=== PATIENT | female | born 1950 | race Caucasian/White ===

== ENCOUNTER → 2018-01-29 07:14 | Outpatient (CLI) | payer MEDICARE, SELFPAY ==
--- NOTE | 2018-01-29 11:16 | NEURO_ITS ---
NCS and/or EMG Patient Report Ordering Doctor: Gretta Lynne DATE OF SERVICE: 01/29/18 This is a bilateral upper extremity nerve conduction study and a right upper extremity EMG performed on this 67-year-old female who began to experience burning and itching sensations in both arms approximately 1 year ago, after having started chemotherapy for breast cancer. Chemotherapy at the time included Taxotere carboplatin Herceptin and perjeta. She is now on Arimidex. Lateral upper extremity sensory and motor nerve conduction studies are performed. The median motor and sensory distal latencies are mild to moderately prolonged symmetrically with preservation of amplitudes and conduction velocities. The ulnar motor and sensory and radial sensory responses are normal. The median and ulnar F-wave latencies are symmetrically preserved. Right upper extremity needle electromyography is performed. Muscles evaluated i ncluded the first dorsal interosseous, abductor pollicis brevis, brachioradialis, biceps, triceps, deltoid, and abductor pollicis longus. All muscles demonstrated normal insertional activity with absence of pathologic spontaneous activity. Motor unit potential recruitment pattern and amplitude was normal in all muscles tested. Impression: This is an abnormal elective his like study of the bilateral upper extremities consistent with mild carpal tunnel syndrome bilaterally however this is likely not a clinically significant finding. 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
== END ==
PROVIDERS: Family Provider Family Medicine; PCP Family Medicine; Referring Provider Family Medicine; Visit Provider Family Medicine
DX: R20.2 Paresthesia of skin (principal)
CPT/HCPCS: 95886; 95911

== ENCOUNTER → 2019-12-29 13:21 | Outpatient (CLI) | payer MEDICARE, SELFPAY ==
[2019-12-29 13:45] LABS: CREATININE FINGERSTICK < 0.6 mg/dL (0.55-1.02)
--- NOTE | 2019-12-29 13:45 | CT_ITS ---
STUDY: CT ABDOMEN AND PELVIS WITH AND WITHOUT CONTRAST REASON FOR EXAM: Female, 69 years old. RIGHT SIDED MIDBACK PAIN LOWER PELVIS HEAVINESS. HX OF UTI BREAST CA WITH A MASTECTOMY RADIATION AND CHEMO RADIATION DOSAGE (If Supplied By Facility): CTDIvol = ( 21.16 ) mGy, DLP = ( 2587.22 ) mGycm TECHNIQUE: Transaxial images were obtained from the dome of the diaphragm to the symphysis pubis with oral contrast. Oral and IV Readi-CAT and 100mL Isovue-370 was administered. Sagittal and coronal images were reconstructed. Individualized dose optimization techniques were used for this CT. COMPARISON: None. FINDINGS: The visualized lung bases are unremarkable. The visualized portions of the heart are within normal limits. Normal liver. Normal gallbladder and extrahepatic biliary system. Normal spleen. Normal pancreas. Normal bilateral adrenal glands. Normal right kidney. Normal left kidney. Normal visualized stomach. Normal small intestine. Moderate amount of fecal material is seen in the colon. Scattered sigmoid diverticula. The appendix is visualized and appears normal. There is diffuse atherosclerotic calcification of the abdominal aorta, without a demonstrated aneurysm. Normal inferior vena cava. There is borderline retroperitoneal lymphadenopathy with enlarged nodes no greater than 10mm in the short axis diameter. Normal urinary bladder. There is a small umbilical hernia containing fat. Small bilateral inguinal hernias containing fat. There are diffuse degenerative changes of the visualized lumbar spine. CT/CT Abd/Pelvis W/WO Contrast IMPRESSION: Moderate amount of fecal material is seen throughout the colon. Small hiatal hernia. Scattered sigmoid diverticula. Electronically Signed: Bruno Tyson, at 15:44 EDT , Service support ,
== END ==
PROVIDERS: PCP Family Medicine; Referring Provider Urology; Visit Provider Urology
DX: R10.9 Unspecified abdominal pain (principal); R11.0 Nausea
CPT/HCPCS: 74178; Q9967

== ENCOUNTER 2020-01-26 03:43 | Observation (INO) | payer MEDICARE, SELFPAY ==
[2020-01-26] VITALS (12 sets, daily range): BP systolic 119–156; BP diastolic 65–79; PULSE 64–79; RESP 16–20; TEMP 36.8–37.5; O2SAT 90–99; BMI 34.9; BMI 34.2; BMI 34.3
--- NOTE | 2020-01-26 05:03 | EKG12_ITS ---
Test Reason : SOB Blood Pressure : / mmHG Vent. Rate : 069 BPM Atrial Rate : 069 BPM P-R Int : 136 ms QRS Dur : 092 ms QT Int : 398 ms P-R-T Axes : -25 038 009 degrees QTc Int : 426 ms Normal sinus rhythm Normal ECG Confirmed by TALHA IVEY, JUAN ([id number]), image editor GABRIEL RIVERA ([id number]) on 01/27/2020 10:35:42 AM Referred By: VIOLETA Confirmed By:JUAN PALENCIA MD
[2020-01-26] MEDS: Acetaminophen 500 MG Tablet 1000 MG PO (05:24)
[2020-01-26 05:26] LABS: Absolute Lymphocyte Count 0.67 X10^3/uL (0.83-4.51); Absolute Neutrophil Count 1.9 X10^3/uL (2.0-7.7); Basophil# 0.01 X10^3/uL; Basophil% 0.3 % (0-1); Eosinophil# 0.11 X10^3/uL; Eosinophils% 3.7 % (0-5); Hematocrit 38.7 % (37-47); Hemoglobin 12.8 g/dL (12.0-15.0); Lymphocyte # 0.67 X10^3/ul (4.0); Lymphocyte % 22.5 % (19-41); Mean Corp Hgb Conc 33.1 g/dL (32-36); Mean Corpuscular Hgb 30.3 pg (27.0-32.0); Mean Corpuscular Volume 91.7 fL (81-99); Monocyte# 0.23 X10^3/uL; Monocyte% 7.7 % (0-10); NRBC Flagged by Analyzer 0 % (0-5); Neutrophil # 1.94 X10^3/uL (2.7-7.7); Neutrophil % 65.1 % (47-70); Platelet Count 160 K/mm3 (150-450); RBC Distribution Width CV 13.3 % (11.6-14.6); RBC Distribution Width SD 45.1 fl (35.1-43.9); Red Blood Count 4.22 M/mm3 (4.2-5.4)
--- NOTE | 2020-01-26 05:35 | ED.VISSUMM ---
- ER Visit Summary Date of Service: 01/26/20 Chief Complaint: Shortness of breath History of Present Illness: The patient is a 69 F who presents with shortness of breath that is been getting worse since yesterday. Patient states she is a heavy feeling in her chest. Patient states nothing makes her breathing worse. Patient states albuterol seem to help with her breathing. Patient states she has a fever of 102. Patient admits to subjective chills. Patient admits to a cough. Patient also admits to some pain in her chest. Patient states she was recently tested positive for COVID-19. Physical Examination: Vital signs are stable. Patient is afebrile. Patient is in no acute distress. Oral mucosa is pink and moist. Neck is supple. Trachea is midline. There is no JVD. Heart was regular rate and rhythm. Lungs showed mild rhonchi. Abdomen is soft bowel sounds are normal. There is no tenderness. Cranial nerves II through XII are intact. There are no focal motor or sensory deficits noted. Extremities are intact. There is no calf tenderness or edema. Test Results: EKG shows normal sinus rhythm with a rate of 69. There are no acute ST or T wave changes. This was unchanged compared to previous EKG dated 02/06/2017. Chest x-ray was obtained. There is increased interstitial prominence in the mid and lower lung melgoza bilaterally. This was interpreted by the radiologist and reviewed by myself. CBC, comprehensive metabolic profile, urinalysis, and lactate were obtained were all within normal limits. PT with INR and PTT were normal. Emergency Department Course and Treatment: Blood cultures were obtained and are pending. Patient was given a DuoNeb aerosol here. Case was discussed with the hospitalist. He will admit the patient to the Covid unit. Patient and family understood and were agreeable with the plan. All questions were answered. Disposition: Admit to hospital Impression: 1. COVID-19 2. Hypoxia This note was generated with [employer] dictation software. It may contain incorrect words, spelling, and punctuation that were not noted in review of the chart prior to signing ED Disposition - Plan for ED Patient: Disposition: Acute Care Hospital [facility] Diagnosis: COVID-19, Hypoxia Referrals: Gretta Lynne PA-C [Primary Care Provider] -
[2020-01-26 05:42] LABS: ALB/GLOB Ratio 0.9 RATIO (0.9-2.4); AST(SGOT) 20 U/L (15-37); Alanine Aminotransfer ALT/SGPT 29 U/L (13-56); Albumin, Serum 3.5 g/dL (3.2-5.0); Alkaline Phosphatase 87 U/L (45-117); Anion Gap 8 (5-15); BUN 13 mg/dL (7-18); BUN/Creat Ratio 17.9 RATIO (10-20); Chloride 105 mmol/L (98-107); Creatinine, Serum 0.73 mg/dL (0.55-1.02); EST Glomerular Filtration Rate 85 mL/min (>60); Est Glom Filt Rate - Afr Amer 103 mL/min (>60); Estimated Creatinine Clearance 55.07 ml/min; Glucose 112 mg/dL (74-106); Potassium 3.7 mmol/L (3.5-5.1); Protein, Total 7.5 g/dL (6.4-8.2); Sodium Level 140 mmol/L (136-145)
[2020-01-26 05:44] LABS: Lactic Acid 1.4 mmol/L (0.4-1.9)
--- NOTE | 2020-01-26 05:45 | RAD_ITS ---
STUDY: X-RAY CHEST REASON FOR EXAM: Female, 69 years old. COUGH TECHNIQUE: Single AP portable view of the chest. COMPARISON: 04/03/2017. FINDINGS: There is interstitial prominence in the mid and lower lung melgoza bilaterally, which probably represents a combination of acute and chronic disease. Atypical infection is suspected. There is no demonstrated dense pulmonary consolidation.. There is no demonstrated pleural abnormality. Normal size heart. Normal mediastinum and arnel. There is atherosclerotic calcification of the aortic arch. There are no demonstrated acute fractures or destructive bone lesions. There is no demonstrated abnormality of the visualized soft tissue structures of the upper abdomen. RAD/Chest 1 View (Portable) IMPRESSION: Increased interstitial prominence in mid and lower lung melgoza, suspicious for atypical/viral infection or underlying chronic disease. No demonstrated dense pulmonary consolidation. Electronically Signed: Yunier Springer MD at 6:25 EDT , Service support ,
[2020-01-26 05:54] LABS: Bacteria 0 SEEN /hpf (None Seen); Mucous, Urine 0 SEEN /hpf (<or=2+); Squamous Epithelial Cells - UA 0 SEEN /hpf (5-10)
[2020-01-26 05:55] LABS: Color, Urine Yellow (Yellow); Glucose, Dipstick Normal (Normal); Ketone-Dipstick 5 mg/dl (Negative); Leukocyte Esterase-Dipstick 25 /ul (Negative); Nitrite-Dipstick Negative (Negative); Occult Blood-Urine 10 /ul (Negative); Protein-Dipstick 30 mg/dl (Negative); Urine Bilirubin Dipstick Negative (Negative); Urine Clarity Clear (Clear); Urine Urobilinogen Normal (Normal)
[2020-01-26 06:26] LABS: Red Blood Cells-Urine 0-5 SEEN /hpf (0-5); White Blood Cells 0-5 SEEN /hpf (0-5)
[2020-01-26 06:39] LABS: Prothrombin Time (Protime)PT. 12.2 SECONDS (11.7-14.9)
[2020-01-26 06:40] LABS: Partial Thromboplast Time 31.1 Seconds (24.1-36.2)
--- NOTE | 2020-01-26 07:20 | NURSING ---
DR TREJO FOR DR MCDANIEL
--- NOTE | 2020-01-26 07:23 | NURSING ---
MS2 COVID COVID 19, HYPOXIA KOTSONIA
[2020-01-26] MEDS: Ipratropium/Albuterol Sulfate 3 ML AMPUL.NEB INHALATION (07:30)
--- NOTE | 2020-01-26 07:33 | NURSING ---
DR TREJO IN ER
--- NOTE | 2020-01-26 09:30 | PCM.HP.STD ---
History of Present Illness Date of Admission: 01/26/20 Chief Complaint: Worsening shortness of breath and cough The patient is a 69 year old F with PMH as below who presents to the hospital with worsening shortness of breath and cough. She also developed a slight fever last night to over 101. She states that her daughter had Covid and then she started feeling bad on Sunday and got tested and the test came back positive for Covid and she has been slowly declining over the last week culminating in coming to the hospital today. In the ER she was found to have a white blood cell count of 3, she is on immunotherapy for breast cancer status postmastectomy. She also does have a history of asthma. Her BMP looked normal and lower her lactic acid was only 1.4. A CRP, LDH, D-dimer are all pending to determine whether or not we need to place her on therapeutic anticoagulation. Chest x-ray was remarkable for increased interstitial prominence in the mid and lower lung field suspicious for atypical/viral infection. Past Medical History Medical History: Medical History (Last Updated 11/24/17 @ 10:51 by Cherelle Walsh) Hx of breast cancer (Acute) Z85.3 hx of port placement (Acute) Allergies adhesive tape Allergy (Verified 01/26/20 03:52) Rash latex Allergy (Verified 01/26/20 03:52) Itching nefazodone [From Serzone] Allergy (Verified 01/26/20 03:52) Rash TIFF WRAPS Allergy (Uncoded 01/26/20 03:52) Itching Home Medications: Ambulatory Orders Medication Instructions Recorded Ibuprofen [Motrin] 600 mg PO BID PRN PRN 11/07/16 calcium carb 300 mg-D3 800 1 tab PO DAILY 11/24/17 unit-mag ox 25 mg-copra processor 0.5 mg-janusz-Zn tablet cholecalciferol (vitamin D3) 1,250 50,000 unit PO QWEEK 11/24/17 mcg (50,000 unit) capsule gabapentin 300 mg capsule 300 mg PO BID 11/24/17 losartan 100 1 tab PO QHS 11/24/17 mg-hydrochlorothiazide 25 mg tablet Albuterol Inhaler [Ventolin Hfa 2 puff INHALATION Q4H PRN PRN 01/26/20 (SP)] DiphenhydrAMINE [Benadryl] 50 mg PO QHS PRN PRN 01/26/20 Exemastane 25 mg PO DAILY 01/26/20 Fluticasone 0.05% [Flonase Nasal 2 spray NASAL DAILY 01/26/20 [place]] Fluticasone Propionate [Flovent 220 mcg IH BID 01/26/20 Hfa] Multivitamin with Minerals 1 ea PO DAILY 01/26/20 [Multiple Vitamin] Oxybutynin Chloride [Oxybutynin 10 mg PO DAILY 01/26/20 Chloride ER] RX: Gabapentin 600 mg PO QHS 01/26/20 RX: Magnesium 400 mg PO BID 01/26/20 RX: Montelukast Sodium 10 mg PO QHS 01/26/20 Tumeric 500 mg PO DAILY 01/26/20 Surgical History: Surgical History (Last Updated 11/24/17 @ 10:51 by Cherelle Walsh) Hx of bilateral mastectomy (Acute) Z90.13 Hx of vein stripping (Acute) Z98.890 Hx of fusion of cervical spine (Acute) Z98.1 c4- C6 History of arthroplasty of right shoulder (Acute) Z96.611 History of ankle surgery (Acute) Z98.890 Left Smoking Status: Current some day smoker Tobacco Use: Cigarettes Alcohol: None Drugs: None - *Family History Maternal History Items: Heart Disease Paternal History Items: Heart Disease Review of Systems Constitutional: Reports: Fever, Weakness. Denies: Chills, Weight Change HEENT: Denies: Head Aches, Sinus Congestion, Sinus Drainage Cardiovascular: Denies: Chest Pain, Palpitations Respiratory: Reports: Cough, Shortness of Breath. Denies: Shortness of breath at rest, Sputum production Gastrointestinal: Denies: Abdominal Pain, Nausea, Vomiting Genitourinary: Denies: Dysuria Musculoskeletal: Denies: Joint Pain, Joint Tenderness Skin: Denies: Rash, Wounds Neurological: Denies: Numbness, Tingling, Focal weakness Psychiatric: Denies: Anxiety, Depression Hematologic/ Lymphatic: Denies: Easy Bruising, Easy Bleeding VTE Information - Inpt Only VTE Present on Admission: No Patient Problems: Active and Suspected Problems (Last Updated 11/24/17 @ 10:51 by Cherelle Walsh) COVID-19 (Acute) Hypoxia (Acute) - Physical Exam Vitals/I&O's: Vital Signs Temp Pulse Resp BP Pulse Ox 98.2 F 79 20 H 119/65 96 01/26/20 07:08 01/26/20 07:08 01/26/20 07:08 01/26/20 07:08 01/26/20 07:08 Oxygen Flow Rate (L/min) 2 Oxygen Delivery Method Room Air Weight: 229 lb 8.019 oz Body Mass Index (BMI) 34.9 Intake and Output for Last 24 Hours 01/24/20 01/25/20 01/26/20 23:59 23:59 23:59 Intake Total 500 / 500 Balance 500 / 500 General: Alert, Oriented x3, Cooperative, No apparent distress HEENT: Atraumatic, PERRLA, EOMI, Normocephalic Oral: Dry Mucosa Neck: Supple, No JVD Lungs: Normal air movement, No rhonchi, No wheeze, No rales, Diminished Cardiovascular: Regular rate, Regular Rhythm, Normal S1, Normal S2, No murmurs Abdomen: Soft, Non Tender, Non-Distended, No Hepato-splenomegaly Extremities: No edema, Capillary Refill Less than 3 Seconds Skin: No rashes, No breakdown Neurological: Neuro grossly intact, Sensory exam intact to light touch and pain Psych/Mental Status: Normal Affect, Appropriate Laboratory Results 01/26/20 04:40: WBC 3.0 L, RBC 4.22, Hgb 12.8, Hct 38.7, MCV 91.7, MCH 30.3, MCHC 33.1, RDW Std Deviation 45.1 H, RDW Coeff of Yimi 13.3, Plt Count 160, MPV 10.0, Immature Gran % (Auto) 0.700, Neut % (Auto) 65.1, Lymph % (Auto) 22.5, [place] % (Auto) 7.7, Eos % (Auto) 3.7, Baso % (Auto) 0.3, Absolute Neuts (auto) 1.9 L, Absolute Lymphs (auto) 0.67 L, Nucleated RBC % 0 01/26/20 04:40: PT 12.2, INR 1.0, APTT 31.1 01/26/20 04:40: Sodium 140, Potassium 3.7, Chloride 105, Carbon Dioxide 27.0, Anion Gap 8, BUN 13, Creatinine 0.73, Estim Creat Clear Calc 55.07, Est GFR (MDRD) Af Amer 103, Est GFR (MDRD) Non-Af 85, BUN/Creatinine Ratio 17.9, Glucose 112 H, Calcium 9.0, Total Bilirubin 0.30, AST 20, ALT 29, Alkaline Phosphatase 87, Total Protein 7.5, Albumin 3.5, Globulin 4.0, Albumin/Globulin Ratio 0.9 01/26/20 04:40: Lactic Acid 1.4 01/26/20 05:30: Urine Color Yellow, Urine Clarity Clear, Urine pH 7.0, Ur Specific [place] 1.010, Urine Protein 30 H, Urine Glucose (UA) Normal, Urine Ketones 5 H, Urine Occult Blood 10 H, Urine Nitrite Negative, Urine Bilirubin Negative, Urine Urobilinogen Normal, Ur Leukocyte Esterase 25 H, Urine RBC 0-5 SEEN, Urine WBC 0-5 SEEN, Ur Squamous Epith Cells 0 SEEN, Urine Bacteria 0 SEEN, Urine Mucus 0 SEEN Current Medications Dexamethasone Sodium Phosphate (Dexamethasone 10 Mg/Ml Vial) 6 mg IV DAILY HANH Enoxaparin Sodium (Enoxaparin 30 Mg/0.3 Ml Syringe) 30 mg SC BID HANH Melatonin (Melatonin 3 Mg Tablet) 3 mg PO QHS PRN PRN PRN Reason: INSOMNIA Ondansetron HCl (Ondansetron 4 Mg/2 Ml Vial) 4 mg IV Q8H PRN PRN PRN Reason: NAUSEA/VOMITING Assessment/Plan All Active Problems (Last Updated 11/24/17 @ 10:51 by Cherelle Walsh) COVID-19 (Acute) Hypoxia (Acute) Hx of bilateral mastectomy (Acute) Hx of breast cancer (Acute) hx of port placement (Acute) Hx of vein stripping (Acute) Hx of fusion of cervical spine (Acute) History of arthroplasty of right shoulder (Acute) History of ankle surgery (Acute) 1. Sepsis and acute hypoxic respiratory insufficiency secondary to acute Covid pneumonia/asthma -Symptoms started on Sunday, will consult ID for possible convalescent plasma and remdesivir -Start her on Decadron and place her on a DuoNeb given her asthma -Her D-dimer did come back elevated therefore we will proceed with a CTA of her chest and start her on therapeutic Lovenox. -Lactic acid is 1.4, will provide her with a regular diet and hold off of any aggressive IV fluids, she received the fluids in the ER -She does take an albuterol inhaler as well as Singulair 2. HTN -Blood pressures here are stable, will continue to monitor -Can resume her home blood pressure medications 3. History of breast cancer - she is status post bilateral mastectomy -She is on anastrozole which can be continued DVT: Lovenox CODE STATUS: I had 20-minute discussion with her on CODE STATUS and the role of a full code versus a DNR CCA versus a DNR CC. She would currently like to be full code and would like to be intubated if necessary. Inpatient E&M: 83600 Init Hosp L3 Procedures: 37937 Advncd Care Plan 30 Min
[2020-01-26] MEDS: dexAMETHasone 10 MG/ML Vial 6 MG IV (10:11)
[2020-01-26] MEDS: Enoxaparin 30 MG/0.3 ML Syringe SC (10:11)
[2020-01-26] MEDS: Gabapentin 300 MG Capsule PO ×2 (10:15→16:47)
[2020-01-26 10:54] LABS: Fibrinogen 474 mg/dl (203-444)
[2020-01-26 11:08] LABS: D-Dimer Quantitative (DVT/PE) 1.07 FEU/ug/m (0.27-0.49)
--- NOTE | 2020-01-26 11:08 | CT_ITS ---
STUDY: CTA CHEST REASON FOR EXAM: Female, 69 years old. COVID+, SOB GETTING WORSE, FEVER, HX BREAST CANCER RADIATION DOSAGE (If Supplied By Facility): CTDIvol = ( 14.43 ) mGy, DLP = ( 480.98 ) mGycm TECHNIQUE: The examination was performed with the intravenous administration of IV 100mL Isovue-370. Post-processing of the angiographic images was performed, with multiplanar reformation and 3D reconstruction. Individualized dose optimization techniques were used for this CT. COMPARISON: Comparison is made with prior examination dated 02/06/2017. FINDINGS: Normal enhancement of the main pulmonary artery and right and left pulmonary arteries. Normal enhancement of the bilateral peripheral pulmonary arteries. There is no demonstrated pulmonary embolism. Normal thoracic aorta and visualized great vessels. There is no demonstrated aortic dissection. Normal heart and pericardium. There are visualized mediastinal lymph nodes, which are within normal size limits, and with normal morphology. Normal hilar regions. Normal visualized trachea and bronchi. The lungs are well expanded. There are patchy areas of airspace disease in the preferential lateral distribution in the right upper lobe as well as both lower lobes. This is superimposed on mild degree of scarring. Pneumonic infiltrates associated with Covid 19 should be ruled out. Normal pleura. Normal chest wall structures. There are degenerative changes of thoracic spine. Normal visualized upper abdomen. CT/CTA Chest W/WO Contrast IMPRESSION: Bilateral patchy alveolar/airspace disease in the preferential lateral distribution as described. Electronically Signed: Bruno Tyson, at 12:14 EDT , Service support ,
[2020-01-26] MEDS: Enoxaparin 80 MG/0.8 ML Syringe 70 MG SC (13:20)
--- NOTE | 2020-01-26 14:05 | CASEMGMT ---
RN CM called patient for initial transition planning/care coordination assessment. RN CM introduced self and role at [facility]. Patient is alert and oriented. Patient willing to participate in assessment and is able to answer all questions appropriately. Care providers, pharmacy, and demographics verified. Patient wishes to discharge home, denies need for home health at this time. Patient states she has no further needs or concerns at this time. CM to follow for discharge planning needs that may arise. PCP: Efren Specialists: Jonas Reza Pharmacy: jerod Murillo with [facility] Insurance: [employer] Prescription Benefit: yes Living Will/HPOA: none LNOK: sister, SERGEY Living Arrangements: Patient lives with sister and SERGEY in 1 story home with 2 steps to enter the home. Patient is able to self isolate at home. Transportation: self, SERGEY, friend DME/HHC: Patient states she has Bip[employer] at home through [employer], will monitor for need for home oxygen. Disposition Plan: Patient to discharge home with family support and follow-up plans in place. Tasha LIU, RN, CM
[2020-01-26 15:13] LABS: LDH 190 U/L (84-246)
--- NOTE | 2020-01-26 16:33 | PCM.HP.ID ---
Problem List (1) COVID-19 Status: Acute Reason for Consult: covid Consulted by: Dr. Suero History of Present Illness: The patient is a 69 year old F presented with one week of cough, headache, change in smell, aches. Developed new dyspnea, came to ED. Lives with sister and brother in law who were also sick but are now recovering. Started on dex and therapeutic lovenox. Feeling better today, on RA. Full ROS Performed and neg except as noted above. - Medical History Surgical History: reviewed Allergies/Adverse Reactions: Allergies adhesive tape Allergy (Verified 01/26/20 03:52) Rash latex Allergy (Verified 01/26/20 03:52) Itching nefazodone [From Serzone] Allergy (Verified 01/26/20 03:52) Rash TIFF WRAPS Allergy (Uncoded 01/26/20 03:52) Itching Home Medications: Ambulatory Orders Medication Instructions Recorded Ibuprofen [Motrin] 600 mg PO BID PRN PRN 11/07/16 calcium carb 300 mg-D3 800 1 tab PO DAILY 11/24/17 unit-mag ox 25 mg-rn endoscopy 0.5 mg-janusz-Zn tablet cholecalciferol (vitamin D3) 1,250 50,000 unit PO QWEEK 11/24/17 mcg (50,000 unit) capsule gabapentin 300 mg capsule 300 mg PO BID 11/24/17 losartan 100 1 tab PO QHS 11/24/17 mg-hydrochlorothiazide 25 mg tablet Albuterol Inhaler [Ventolin Hfa 2 puff INHALATION Q4H PRN PRN 01/26/20 (SP)] DiphenhydrAMINE [Benadryl] 50 mg PO QHS PRN PRN 01/26/20 Exemastane 25 mg PO DAILY 01/26/20 Fluticasone 0.05% [Flonase Nasal 2 spray NASAL DAILY 01/26/20 [place]] Fluticasone Propionate [Flovent 220 mcg IH BID 01/26/20 Hfa] Gabapentin 600 mg PO QHS 01/26/20 Magnesium 400 mg PO BID 01/26/20 Montelukast Sodium 10 mg PO QHS 01/26/20 Multivitamin with Minerals 1 ea PO DAILY 01/26/20 [Multiple Vitamin] Oxybutynin Chloride [Oxybutynin 10 mg PO DAILY 01/26/20 Chloride ER] Tumeric 500 mg PO DAILY 01/26/20 - Social History SMOKING STATUS:: Current every day smoker Vital Signs Temp Pulse Resp BP Pulse Ox 98.8 F 75 16 149/79 H 99 01/26/20 09:38 01/26/20 09:38 01/26/20 09:38 01/26/20 09:38 01/26/20 09:59 Oxygen Flow Rate (L/min) 2 Oxygen Delivery Method Nasal Cannula Weight: 102.286 kg Body Mass Index (BMI) 34.2 Microbiology Past 72 Hours 01/26/20 09:45 Respiratory Panel (PCR) - Final Mucosa - Nasopharyngeal 01/26/20 05:30 Legionella Antigen - Final Urine, Random 01/26/20 05:30 Streptococcus pneumoniae Antigen (M - Final Urine, Random Laboratory Tests Past 24 Hrs 01/26/20 01/26/20 01/26/20 04:40 04:40 04:40 WBC 3.0 L RBC 4.22 Hgb 12.8 Hct 38.7 MCV 91.7 MCH 30.3 MCHC 33.1 RDW Std Deviation 45.1 H RDW Coeff of Yimi 13.3 Plt Count 160 MPV 10.0 Immature Gran % (Auto) 0.700 Neut % (Auto) 65.1 Lymph % (Auto) 22.5 [place] % (Auto) 7.7 Eos % (Auto) 3.7 Baso % (Auto) 0.3 Absolute Neuts (auto) 1.9 L Absolute Lymphs (auto) 0.67 L Nucleated RBC % 0 PT 12.2 INR 1.0 APTT 31.1 Fibrinogen D-Dimer Quant (PE/DVT) Sodium 140 Potassium 3.7 Chloride 105 Carbon Dioxide 27.0 Anion Gap 8 BUN 13 Creatinine 0.73 Estim Creat Clear Calc 55.07 Est GFR (MDRD) Af Amer 103 Est GFR (MDRD) Non-Af 85 BUN/Creatinine Ratio 17.9 Glucose 112 H Lactic Acid Calcium 9.0 Total Bilirubin 0.30 AST 20 ALT 29 Alkaline Phosphatase 87 Lactate Dehydrogenase C-React Prot Ext Range Total Protein 7.5 Albumin 3.5 Globulin 4.0 Albumin/Globulin Ratio 0.9 Urine Color Urine Clarity Urine pH Ur Specific [place] Urine Protein Urine Glucose (UA) Urine Ketones Urine Occult Blood Urine Nitrite Urine Bilirubin Urine Urobilinogen Ur Leukocyte Esterase Urine RBC Urine WBC Ur Squamous Epith Cells Urine Bacteria Urine Mucus 01/26/20 01/26/20 01/26/20 04:40 05:30 10:18 WBC RBC Hgb Hct MCV MCH MCHC RDW Std Deviation RDW Coeff of Yimi Plt Count MPV Immature Gran % (Auto) Neut % (Auto) Lymph % (Auto) [place] % (Auto) Eos % (Auto) Baso % (Auto) Absolute Neuts (auto) Absolute Lymphs (auto) Nucleated RBC % PT INR APTT Fibrinogen 474 H D-Dimer Quant (PE/DVT) 1.07 H* Sodium Potassium Chloride Carbon Dioxide Anion Gap BUN Creatinine Estim Creat Clear Calc Est GFR (MDRD) Af Amer Est GFR (MDRD) Non-Af BUN/Creatinine Ratio Glucose Lactic Acid 1.4 Calcium Total Bilirubin AST ALT Alkaline Phosphatase Lactate Dehydrogenase C-React Prot Ext Range Total Protein Albumin Globulin Albumin/Globulin Ratio Urine Color Yellow Urine Clarity Clear Urine pH 7.0 Ur Specific [place] 1.010 Urine Protein 30 H Urine Glucose (UA) Normal Urine Ketones 5 H Urine Occult Blood 10 H Urine Nitrite Negative Urine Bilirubin Negative Urine Urobilinogen Normal Ur Leukocyte Esterase 25 H Urine RBC 0-5 SEEN Urine WBC 0-5 SEEN Ur Squamous Epith Cells 0 SEEN Urine Bacteria 0 SEEN Urine Mucus 0 SEEN 01/26/20 10:18 WBC RBC Hgb Hct MCV MCH MCHC RDW Std Deviation RDW Coeff of Yimi Plt Count MPV Immature Gran % (Auto) Neut % (Auto) Lymph % (Auto) [place] % (Auto) Eos % (Auto) Baso % (Auto) Absolute Neuts (auto) Absolute Lymphs (auto) Nucleated RBC % PT INR APTT Fibrinogen D-Dimer Quant (PE/DVT) Sodium Potassium Chloride Carbon Dioxide Anion Gap BUN Creatinine Estim Creat Clear Calc Est GFR (MDRD) Af Amer Est GFR (MDRD) Non-Af BUN/Creatinine Ratio Glucose Lactic Acid Calcium Total Bilirubin AST ALT Alkaline Phosphatase Lactate Dehydrogenase 190 C-React Prot Ext Range 12.40 H Total Protein Albumin Globulin Albumin/Globulin Ratio Urine Color Urine Clarity Urine pH Ur Specific [place] Urine Protein Urine Glucose (UA) Urine Ketones Urine Occult Blood Urine Nitrite Urine Bilirubin Urine Urobilinogen Ur Leukocyte Esterase Urine RBC Urine WBC Ur Squamous Epith Cells Urine Bacteria Urine Mucus - Other Studies Radiology: [] reviewed Other Studies: [] Route of nutrition/ use of supplements: [] Nutritional Intake: [] IV Site: [] Smith Catheter: [] - Physical Exam General: Alert, Oriented x3, Cooperative, No apparent distress HEENT: Atraumatic, PERRLA, EOMI Neck: Supple, No Nodes Lungs: Clear to auscultation, Diminished Cardiovascular: Regular rate, Regular Rhythm Abdomen: Soft, Non Tender, Non-Distended Extremities: No edema Skin: No rashes IV Site: Peripheral, without redness Musculoskeletal: No Tenderness to Palpation of Joints or Extremities Neurological: Cranial nerves II-XII grossly intact - Assessment/Plan Antibiotics: [] Assessment/Plan: [] Active and Suspected Problems (Last Updated 11/24/17 @ 10:51 by Cherelle Walsh) COVID-19 (Acute) Hypoxia (Acute) covid - feeling better, sats are 97% on RA throughout my interview and exam. Recommend discharge home to quarantine for 3 more days and to complete 10 days total of dex. With no PE seen on CT and only mild rise in d-dimer, will decrease lovenox to 40 bid while here; can go home on 2 weeks of ASA. Will follow, thank you
[2020-01-26] MEDS: guaiFENesin 10 ML UDC (200MG/10ML) PO (16:48)
[2020-01-26] MEDS: 0.9% Saline Lock 10 ML Syringe IV (22:33)
[2020-01-26] MEDS: hydroCHLOROthiazide 25 MG Tablet PO (22:34)
[2020-01-26] MEDS: Losartan Potassium 100 MG Tablet PO (22:34)
[2020-01-26] MEDS: Enoxaparin 40 MG/0.4 ML Syringe SC (22:34)
[2020-01-26] MEDS: Montelukast 10 MG Tablet PO (22:35)
[2020-01-26] MEDS: Gabapentin 600 MG Tablet PO (22:35)
[2020-01-26] MEDS: DiphenhydrAMINE 25 MG Capsule 50 MG PO (22:39)
[2020-01-27 05:36] VITALS: BP 131/71; PULSE 62; RESP 20; TEMP 37.1; O2SAT 94
[2020-01-27 05:40] VITALS: RESP 20; O2SAT 94
[2020-01-27 06:13] LABS: Absolute Lymphocyte Count 0.83 X10^3/uL (0.83-4.51); Absolute Neutrophil Count 2.3 X10^3/uL (2.0-7.7); Basophil# 0.01 X10^3/uL; Basophil% 0.3 % (0-1); Hematocrit 38.1 % (37-47); Hemoglobin 12.5 g/dL (12.0-15.0); Lymphocyte # 0.83 X10^3/ul (4.0); Lymphocyte % 24.3 % (19-41); Mean Corp Hgb Conc 32.8 g/dL (32-36); Mean Corpuscular Volume 91.4 fL (81-99); Mean Platelet Vol. 9.7 fl (6.2-12.0); Monocyte% 8.8 % (0-10); NRBC Flagged by Analyzer 0 % (0-5); Neutrophil # 2.26 X10^3/uL (2.7-7.7); Platelet Count 182 K/mm3 (150-450); RBC Distribution Width CV 13.2 % (11.6-14.6); RBC Distribution Width SD 45.1 fl (35.1-43.9); Red Blood Count 4.17 M/mm3 (4.2-5.4); White Blood Count 3.4 K/mm3 (4.4-11.0)
[2020-01-27 06:43] LABS: ALB/GLOB Ratio 0.8 RATIO (0.9-2.4); AST(SGOT) 20 U/L (15-37); Alanine Aminotransfer ALT/SGPT 26 U/L (13-56); Albumin, Serum 3.3 g/dL (3.2-5.0); Alkaline Phosphatase 77 U/L (45-117); Anion Gap 8 (5-15); BUN 15 mg/dL (7-18); BUN/Creat Ratio 22.8 RATIO (10-20); Calcium,Total 9.1 mg/dL (8.5-10.1); Chloride 106 mmol/L (98-107); Creatinine, Serum 0.66 mg/dL (0.55-1.02); EST Glomerular Filtration Rate 95 mL/min (>60); Est Glom Filt Rate - Afr Amer 115 mL/min (>60); Estimated Creatinine Clearance 55.07 ml/min; Glucose 117 mg/dL (74-106); Potassium 3.5 mmol/L (3.5-5.1); Protein, Total 7.3 g/dL (6.4-8.2); Sodium Level 140 mmol/L (136-145)
[2020-01-27 07:46] VITALS: O2SAT 96
--- NOTE | 2020-01-27 09:43 | PCM.PN.HOSP ---
Patient Problems: Active and Suspected Problems (Last Updated 11/24/17 @ 10:51 by Cherelle Walsh) COVID-19 (Acute) Hypoxia (Acute) Subjective: Feeling better, exam was done while she was on room air. We will ambulate her to see if she requires any oxygen prior to discharge. No issues overnight. Vitals/I&O's: Vital Signs Temp Pulse Resp BP Pulse Ox 98.7 F 62 20 H 131/71 H 96 01/27/20 05:36 01/27/20 05:36 01/27/20 05:40 01/27/20 05:36 01/27/20 07:46 Oxygen Flow Rate (L/min) 2 Oxygen Delivery Method Nasal Cannula Weight: 225 lb 8.019 oz Body Mass Index (BMI) 34.2 Intake and Output for Last 24 Hours 01/25/20 01/26/20 01/27/20 23:59 23:59 23:59 Intake Total 1100 / 1100 Balance 1100 / 1100 General: Alert, Oriented x3, Cooperative, No apparent distress HEENT: Atraumatic, PERRLA, EOMI, Normocephalic Oral: Dry Mucosa Neck: Supple, No JVD Lungs: Normal air movement, No rhonchi, No wheeze, No rales, Diminished Cardiovascular: Regular rate, Regular Rhythm, Normal S1, Normal S2, No murmurs Abdomen: Soft, Non Tender, Non-Distended, No Hepato-splenomegaly Extremities: No edema, Capillary Refill Less than 3 Seconds Skin: No rashes, No breakdown Neurological: Neuro grossly intact, Sensory exam intact to light touch and pain Psych/Mental Status: Normal Affect, Appropriate Microbiology Past 72 Hours 01/26/20 09:45 Mucosa - Nasopharyngeal Respiratory Panel (PCR) - Final 01/26/20 05:30 Urine, Random Legionella Antigen - Final 01/26/20 05:30 Urine, Random Streptococcus pneumoniae Antigen (M - Final Laboratory Results 01/26/20 10:18: Fibrinogen 474 H, D-Dimer Quant (PE/DVT) 1.07 H* 01/26/20 10:18: Lactate Dehydrogenase 190, C-React Prot Ext Range 12.40 H 01/27/20 05:36: WBC 3.4 L, RBC 4.17 L, Hgb 12.5, Hct 38.1, MCV 91.4, MCH 30.0, MCHC 32.8, RDW Std Deviation 45.1 H, RDW Coeff of Yimi 13.2, Plt Count 182, MPV 9.7, Immature Gran % (Auto) 0.600, Neut % (Auto) 66.0, Lymph % (Auto) 24.3, [place] % (Auto) 8.8, Eos % (Auto) 0.0, Baso % (Auto) 0.3, Absolute Neuts (auto) 2.3, Absolute Lymphs (auto) 0.83, Nucleated RBC % 0 01/27/20 05:36: Sodium 140, Potassium 3.5, Chloride 106, Carbon Dioxide 26.0, Anion Gap 8, BUN 15, Creatinine 0.66, Estim Creat Clear Calc 55.07, Est GFR (MDRD) Af Amer 115, Est GFR (MDRD) Non-Af 95, BUN/Creatinine Ratio 22.8 H, Glucose 117 H, Calcium 9.1, Total Bilirubin 0.40, AST 20, ALT 26, Alkaline Phosphatase 77, Total Protein 7.3, Albumin 3.3, Globulin 4.0, Albumin/Globulin Ratio 0.8 L Current Medications Albuterol/Ipratropium (Ipratropium/Albuterol Sulfate 3 Ml Ampul.Neb) 3 ml INHALATION Q4HWA.RT PRN PRN Reason: SHORTNESS OF BREATH Dexamethasone (Dexamethasone 4 Mg Tablet) 6 mg PO DAILY@0800 [facility] Stop: 02/04/20 08:01 Diphenhydramine HCl (Diphenhydramine 25 Mg Capsule) 50 mg PO QHS PRN PRN PRN Reason: INSOMNIA Last Admin: 01/26/20 22:39 Dose: 50 mg Documented by: Enoxaparin Sodium (Enoxaparin 40 Mg/0.4 Ml Syringe) 40 mg SC BID [facility] Last Admin: 01/26/20 22:34 Dose: 40 mg Documented by: Exemestane (Exemestane 25 Mg Tablet) 25 mg PO DAILY [facility] Gabapentin (Gabapentin 600 Mg Tablet) 600 mg PO QHS [facility] Last Admin: 01/26/20 22:35 Dose: 600 mg Documented by: [facility] ([facility] 300 [facility]ule) [facility] Last Admin: 01/26/20 16:47 Dose: 300 mg Documented by: Guaifenesin (Guaifenesin 10 Ml Udc (200mg/10ml)) 10 ml PO Q6H PRN PRN PRN Reason: COUGH Last Admin: 01/26/20 16:48 Dose: 10 ml Documented by: Hydrochlorothiazide (Hydrochlorothiazide 25 Mg Tablet) 25 mg PO DAILY@2199 [facility] Last Admin: 01/26/20 22:34 Dose: 25 mg Documented by: Losartan Potassium (Losartan Potassium 100 Mg Tablet) 100 mg PO DAILY@2199 [facility] Last Admin: 01/26/20 22:34 Dose: 100 mg Documented by: Melatonin (Melatonin 3 Mg Tablet) 3 mg PO QHS PRN PRN PRN Reason: INSOMNIA Montelukast Sodium (Montelukast 10 Mg Tablet) 10 mg PO DAILY@2199 [facility] Last Admin: 01/26/20 22:35 Dose: 10 mg Documented by: Ondansetron HCl (Ondansetron 4 Mg/2 Ml Vial) 4 mg IV Q8H PRN PRN PRN Reason: NAUSEA/VOMITING Sodium Chloride (0.9% Saline Lock 10 Ml Syringe) 10 - 40 ml IV UD PRN PRN Reason: SALINE FLUSH Last Admin: 01/26/20 22:33 Dose: 10 ml Documented by: Tolterodine Tartrate (Tolterodine Tartrate 2 Mg Cap.Sa) 2 mg PO DAILY [facility] STROKE Vital Signs/Narrative: Vital Signs Pulse Ox 01/27/20 07:46 96 Medical Necessity - Tobacco Use Smoking Status: Current some day smoker Tobacco Use: Cigarettes Assessment/Plan All Active Problems (Last Updated 11/24/17 @ 10:51 by Cherelle Walsh) COVID-19 (Acute) Hypoxia (Acute) Hx of bilateral mastectomy (Acute) Hx of breast cancer (Acute) hx of port placement (Acute) Hx of vein stripping (Acute) Hx of fusion of cervical spine (Acute) History of arthroplasty of right shoulder (Acute) History of ankle surgery (Acute) 1. Sepsis and acute hypoxic respiratory insufficiency secondary to acute Covid pneumonia/asthma -Symptoms started on Sunday, will consult ID for possible convalescent plasma and remdesivir -Start her on Decadron and place her on a DuoNeb given her asthma -Her D-dimer was elevated however her CTA was negative for a PE. Can back down her Lovenox to 40 mg twice daily, per recommendations of infectious disease when ready to discharge can discharge her on aspirin -Lactic acid is 1.4, will provide her with a regular diet and hold off of any aggressive IV fluids, she received the fluids in the ER -She does take an albuterol inhaler as well as Singulair 2. HTN -Blood pressures here are stable, will continue to monitor -Can resume her home blood pressure medications 3. History of breast cancer - she is status post bilateral mastectomy -She is on anastrozole which can be continued DVT: Lovenox Inpatient E&M: 56007 Subs Hosp L2
[2020-01-27] MEDS: guaiFENesin 10 ML UDC (200MG/10ML) PO (10:13)
[2020-01-27] MEDS: dexAMETHasone 4 MG Tablet 6 MG PO (10:13)
[2020-01-27] MEDS: Gabapentin 300 MG Capsule PO (10:14)
[2020-01-27] MEDS: Enoxaparin 40 MG/0.4 ML Syringe SC (10:14)
[2020-01-27] MEDS: Tolterodine Tartrate 2 MG CAP.SA PO (10:14)
[2020-01-27 10:18] VITALS: BP 152/65; PULSE 83; RESP 18; TEMP 37.5; O2SAT 96
[2020-01-27] MEDS: 0.9% Saline Lock 10 ML Syringe IV (10:23)
[2020-01-27 10:26] VITALS: O2SAT 96
--- NOTE | 2020-01-27 13:45 | DCINST_ITS ---
- Discharge Diagnoses Current Active Problems: Current Active and Chronic Problems (Last Updated 11/24/17 @ 10:51 by Cherelle Walsh) COVID-19 (Acute) Hypoxia (Acute) You will use the following diet at home:: Regular Your food should be the consistency of: Regular Your liquids should be the consistency of: Regular/Thin Discharge Activity: Return to Normal Activity Call your doctor if you observe: Fever of 101 or Higher, Shortness of breath, Dizziness, Fainting spells, Swelling in the ankles, Chest pain, Increased palpitations (irregular heartbeat) Allergies/Adverse Reactions: Allergies adhesive tape Allergy (Verified 01/26/20 03:52) Rash latex Allergy (Verified 01/26/20 03:52) Itching nefazodone [From Serzone] Allergy (Verified 01/26/20 03:52) Rash TIFF WRAPS Allergy (Uncoded 01/26/20 03:52) Itching Medications to take at Discharge Ibuprofen [Motrin] 600 mg PO BID PRN PRN 11/07/16 calcium carb 300 mg-D3 800 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 0.5 mg-janusz-Zn tablet 1 tab PO DAILY 11/24/17 cholecalciferol (vitamin D3) 1,250 mcg (50,000 unit) capsule 50,000 unit PO QWEEK 11/24/17 gabapentin 300 mg capsule 300 mg PO BID 11/24/17 losartan 100 mg-hydrochlorothiazide 25 mg tablet 1 tab PO QHS 11/24/17 Albuterol Inhaler [Ventolin Hfa] 2 puff INHALATION Q4H PRN PRN 01/26/20 DiphenhydrAMINE [Benadryl] 50 mg PO QHS PRN PRN 01/26/20 Exemastane 25 mg PO DAILY 01/26/20 Fluticasone 0.05% [Flonase Nasal [place]] 2 spray NASAL DAILY 01/26/20 Fluticasone Propionate [Flovent Hfa] 220 mcg IH BID 01/26/20 Gabapentin 600 mg PO QHS 01/26/20 Magnesium 400 mg PO BID 01/26/20 Montelukast Sodium 10 mg PO QHS 01/26/20 Multivitamin with Minerals [Multiple Vitamin] 1 ea PO DAILY 01/26/20 Oxybutynin Chloride [Oxybutynin Chloride ER] 10 mg PO DAILY 01/26/20 Tumeric 500 mg PO DAILY 01/26/20 Aspirin 325 mg PO DAILY@0800 #14 tab 01/27/20 Dexamethasone [Decadron] 6 mg PO DAILY@0800 #15 tab 01/27/20 The following prescriptions were given: Aspirin 325 mg PO DAILY@0800 #14 tab Transmission Status: Pending to [facility] Dexamethasone [Decadron] 6 mg PO DAILY@0800 #15 tab Transmission Status: Pending to [facility] Primary Care Physician: Gretta Lynne PABenjiC [Primary Care Provider] - Please follow up with your Primary Care Physician in: 3-5 days Test Results: Test results from this visit will be discussed in further detail at your follow- up appointment, if applicable. Please Follow Up With: Gus Le MD When: 2-4 weeks
[2020-01-27 13:46] VITALS: BP 120/60; PULSE 66; RESP 16; TEMP 37.3; O2SAT 96
--- NOTE | 2020-01-27 13:48 | DS.PCM_ITS ---
Discharge Date and Diagnosis - Problem List Patient Problems: Active and Suspected Problems (Last Updated 11/24/17 @ 10:51 by Cherelle Walsh) COVID-19 (Acute) Hypoxia (Acute) Date of Admission: 01/26/20 Date of Discharge: 01/27/20 - Primary Discharge Diagnosis Acute Problems: Active Problems (Last Updated 11/24/17 @ 10:51 by Cherelle Walsh) COVID-19 (Acute) Hypoxia (Acute) Hospital Course and Treatment Imaging Results: Clinical Impression(s) from Imaging Studies Chest X-Ray 01/26/20 05:45 IMPRESSION: Increased interstitial prominence in mid and lower lung melgoza, suspicious for atypical/viral infection or underlying chronic disease. No demonstrated dense pulmonary consolidation. Electronically Signed: Yunier Springer MD at 6:25 EDT , Service support , Chest CTA 01/26/20 11:08 IMPRESSION: Bilateral patchy alveolar/airspace disease in the preferential lateral distribution as described. Electronically Signed: Bruno Tyson, at 12:14 EDT , Service support , Consults: ID Operations: None Procedures: None Summary of Care Provided: Per HPI: The patient is a 69 year old F with PMH as below who presents to the hospital with worsening shortness of breath and cough. She also developed a slight fever last night to over 101. She states that her daughter had Covid and then she started feeling bad on Sunday and got tested and the test came back positive for Covid and she has been slowly declining over the last week culminating in coming to the hospital today. In the ER she was found to have a white blood cell count of 3, she is on immunotherapy for breast cancer status postmastectomy. She also does have a history of asthma. Her BMP looked normal and lower her lactic acid was only 1.4. A CRP, LDH, D-dimer are all pending to determine whether or not we need to place her on therapeutic anticoagulation. Chest x-ray was remarkable for increased interstitial prominence in the mid and lower lung field suspicious for atypical/viral infection. Hospital Course: 1. Sepsis and acute hypoxic respiratory insufficiency secondary to acute Covid pneumonia/acdwwp-73-kwka-old female with a history of asthma presents to the hospital with worsening shortness of breath and cough. She has known exposure to Covid through her daughter and her son-in-law. She was started on Decadron and infectious disease was consulted. She had significant improvement very quickly with the steroids and has been on room air. She did have an ambulatory pulse ox today and she was 96% on room air while walking. On admission she did have an elevated D-dimer and a CTA was obtained which did not show a PE. Infectious disease felt that she was stable for discharge on 10 days of Decadron and 2 weeks of aspirin. We will also have her follow-up with pulmonology as an outpatient given her Covid diagnosis with asthma. I discussed the plan for discharge today and she expressed understanding of the risks and benefits of discharge and would like to go home. 2. Hypertension, history of breast cancer her chronic medical conditions which complicate her care. Her home medications were continued where appropriate Patient Problems: Active and Suspected Problems (Last Updated 11/24/17 @ 10:51 by Cherelle Walsh) COVID-19 (Acute) Hypoxia (Acute) - Physical Exam Vitals/I&O's: Vital Signs Temp Pulse Resp BP Pulse Ox 99.5 F H 83 18 152/65 H 96 01/27/20 10:18 01/27/20 10:18 01/27/20 10:18 01/27/20 10:18 01/27/20 10:26 Oxygen Flow Rate (L/min) 2 Oxygen Delivery Method Room Air Weight: 225 lb 8.019 oz Body Mass Index (BMI) 34.2 Intake and Output for Last 24 Hours 01/25/20 01/26/20 01/27/20 23:59 23:59 23:59 Intake Total 1100 / 1100 Balance 1100 / 1100 Microbiology Past 72 Hours 01/26/20 05:30 Interface Orders Urine Culture - Final Mixed Gram Pos & Gram Neg Org 01/26/20 09:45 Mucosa - Nasopharyngeal Respiratory Panel (PCR) - Final 01/26/20 05:30 Urine, Random Legionella Antigen - Final 01/26/20 05:30 Urine, Random Streptococcus pneumoniae Antigen (M - Final Laboratory Results 01/26/20 10:18: Lactate Dehydrogenase 190, C-React Prot Ext Range 12.40 H 01/27/20 05:36: WBC 3.4 L, RBC 4.17 L, Hgb 12.5, Hct 38.1, MCV 91.4, MCH 30.0, MCHC 32.8, RDW Std Deviation 45.1 H, RDW Coeff of Yimi 13.2, Plt Count 182, MPV 9.7, Immature Gran % (Auto) 0.600, Neut % (Auto) 66.0, Lymph % (Auto) 24.3, Duchesne % (Auto) 8.8, Eos % (Auto) 0.0, Baso % (Auto) 0.3, Absolute Neuts (auto) 2.3, Absolute Lymphs (auto) 0.83, Nucleated RBC % 0 01/27/20 05:36: Sodium 140, Potassium 3.5, Chloride 106, Carbon Dioxide 26.0, Anion Gap 8, BUN 15, Creatinine 0.66, Estim Creat Clear Calc 55.07, Est GFR (MDRD) Af Amer 115, Est GFR (MDRD) Non-Af 95, BUN/Creatinine Ratio 22.8 H, Glucose 117 H, Calcium 9.1, Total Bilirubin 0.40, AST 20, ALT 26, Alkaline Phosphatase 77, Total Protein 7.3, Albumin 3.3, Globulin 4.0, Albumin/Globulin Ratio 0.8 L Current Medications Albuterol/Ipratropium (Ipratropium/Albuterol Sulfate 3 Ml Ampul.Neb) 3 ml INHALATION Q4HWA.RT PRN PRN Reason: SHORTNESS OF BREATH Dexamethasone (Dexamethasone 4 Mg Tablet) 6 mg PO DAILY@0800 [facility] Stop: 02/04/20 08:01 Last Admin: 01/27/20 10:13 Dose: 6 mg Documented by: Diphenhydramine HCl (Diphenhydramine 25 Mg Capsule) 50 mg PO QHS PRN PRN PRN Reason: INSOMNIA Last Admin: 01/26/20 22:39 Dose: 50 mg Documented by: Enoxaparin Sodium (Enoxaparin 40 Mg/0.4 Ml Syringe) 40 mg SC BID [facility] Last Admin: 01/27/20 10:14 Dose: 40 mg Documented by: Exemestane (Exemestane 25 Mg Tablet) 25 mg PO DAILY [facility] Last Admin: 01/27/20 10:14 Dose: 25 mg Documented by: Gabapentin (Gabapentin 600 Mg Tablet) 600 mg PO QHS [facility] Last Admin: 01/26/20 22:35 Dose: 600 mg Documented by: Gabapentin (Gabapentin 300 Mg Capsule) 300 mg PO BIDCM [facility] Last Admin: 01/27/20 10:14 Dose: 300 mg Documented by: Guaifenesin (Guaifenesin 10 Ml Udc (200mg/10ml)) 10 ml PO Q6H PRN PRN PRN Reason: COUGH Last Admin: 01/27/20 10:13 Dose: 10 ml Documented by: Hydrochlorothiazide (Hydrochlorothiazide 25 Mg Tablet) 25 mg PO DAILY@2199 [facility] Last Admin: 01/26/20 22:34 Dose: 25 mg Documented by: Losartan Potassium (Losartan Potassium 100 Mg Tablet) 100 mg PO DAILY@2199 [facility] Last Admin: 01/26/20 22:34 Dose: 100 mg Documented by: Melatonin (Melatonin 3 Mg Tablet) 3 mg PO QHS PRN PRN PRN Reason: INSOMNIA Montelukast Sodium (Montelukast 10 Mg Tablet) 10 mg PO DAILY@2199 [facility] Last Admin: 01/26/20 22:35 Dose: 10 mg Documented by: Ondansetron HCl (Ondansetron 4 Mg/2 Ml Vial) 4 mg IV Q8H PRN PRN PRN Reason: NAUSEA/VOMITING Sodium Chloride (0.9% Saline Lock 10 Ml Syringe) 10 - 40 ml IV UD PRN PRN Reason: SALINE FLUSH Last Admin: 01/27/20 10:23 Dose: 10 ml Documented by: Tolterodine Tartrate (Tolterodine Tartrate 2 Mg Cap.Sa) 2 mg PO DAILY [facility] Last Admin: 01/27/20 10:14 Dose: 2 mg Documented by: Discharge Activity: Return to Normal Activity Call your doctor if you observe: Fever of 101 or Higher, Shortness of breath, Dizziness, Fainting spells, Swelling in the ankles, Chest pain, Increased palpitations (irregular heartbeat) Home Medications: Medications to take at Discharge Ibuprofen [Motrin] 600 mg PO BID PRN PRN 11/07/16 calcium carb 300 mg-D3 800 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 0.5 mg-janusz-Zn tablet 1 tab PO DAILY 11/24/17 cholecalciferol (vitamin D3) 1,250 mcg (50,000 unit) capsule 50,000 unit PO QWEEK 11/24/17 gabapentin 300 mg capsule 300 mg PO BID 11/24/17 losartan 100 mg-hydrochlorothiazide 25 mg tablet 1 tab PO QHS 11/24/17 Albuterol Inhaler [Ventolin Hfa] 2 puff INHALATION Q4H PRN PRN 01/26/20 DiphenhydrAMINE [Benadryl] 50 mg PO QHS PRN PRN 01/26/20 Exemastane 25 mg PO DAILY 01/26/20 Fluticasone 0.05% [Flonase Nasal [place]] 2 spray NASAL DAILY 01/26/20 Fluticasone Propionate [Flovent Hfa] 220 mcg IH BID 01/26/20 Gabapentin 600 mg PO QHS 01/26/20 Magnesium 400 mg PO BID 01/26/20 Montelukast Sodium 10 mg PO QHS 01/26/20 Multivitamin with Minerals [Multiple Vitamin] 1 ea PO DAILY 01/26/20 Oxybutynin Chloride [Oxybutynin Chloride ER] 10 mg PO DAILY 01/26/20 Tumeric 500 mg PO DAILY 01/26/20 Aspirin 325 mg PO DAILY@0800 #14 tab 01/27/20 Dexamethasone [Decadron] 6 mg PO DAILY@0800 #15 tab 01/27/20 Following Prescriptions Were Given to Patient: Aspirin 325 mg PO DAILY@0800 #14 tab Transmission Status: Pending to [facility] Dexamethasone [Decadron] 6 mg PO DAILY@0800 #15 tab Transmission Status: Pending to [facility] Primary Care Physician: Gretta Lynne, PA-C [Primary Care Provider] - Please follow up with your Primary Care Physician in: 3-5 days Please Follow Up With: Gus Le MD When: 2-4 weeks Disposition: Home Minutes spent on discharge:: 35 Patient Condition:: Stable Medical Necessity - Tobacco Use Smoking Status: Current some day smoker Tobacco Use: Cigarettes Meaningful Use Info Meaningful Use Diagnoses (Choose all that apply): None applicable OBSV E&M: 34894 Observation care discharge
--- NOTE | 2020-01-27 15:30 | PCM.PN.ID ---
Patient Problems: Active and Suspected Problems (Last Updated 11/24/17 @ 10:51 by Cherelle Walsh) COVID-19 (Acute) Hypoxia (Acute) Subjective: Feeling much better, no fever, less SOB - Physical Exam Vitals/I&O's: Vital Signs Temp Pulse Resp BP Pulse Ox 99.1 F 66 16 120/60 96 01/27/20 13:46 01/27/20 13:46 01/27/20 13:46 01/27/20 13:46 01/27/20 13:46 Oxygen Flow Rate (L/min) 2 Oxygen Delivery Method Room Air Weight: 102.286 kg Body Mass Index (BMI) 34.2 Intake and Output for Last 24 Hours 01/25/20 01/26/20 01/27/20 23:59 23:59 23:59 Intake Total 1100 / 1100 Balance 1100 / 1100 General: Alert, Cooperative, No apparent distress Lungs: Clear to auscultation, Diminished Cardiovascular: Regular rate, Regular Rhythm Abdomen: Soft, Non Tender, Non-Distended Skin: No rashes Microbiology Past 72 Hours 01/26/20 05:30 Interface Orders Urine Culture - Final Mixed Gram Pos & Gram Neg Org 01/26/20 09:45 Mucosa - Nasopharyngeal Respiratory Panel (PCR) - Final 01/26/20 05:30 Urine, Random Legionella Antigen - Final 01/26/20 05:30 Urine, Random Streptococcus pneumoniae Antigen (M - Final Laboratory Results 01/27/20 05:36: WBC 3.4 L, RBC 4.17 L, Hgb 12.5, Hct 38.1, MCV 91.4, MCH 30.0, MCHC 32.8, RDW Std Deviation 45.1 H, RDW Coeff of Yimi 13.2, Plt Count 182, MPV 9.7, Immature Gran % (Auto) 0.600, Neut % (Auto) 66.0, Lymph % (Auto) 24.3, Thomas % (Auto) 8.8, Eos % (Auto) 0.0, Baso % (Auto) 0.3, Absolute Neuts (auto) 2.3, Absolute Lymphs (auto) 0.83, Nucleated RBC % 0 01/27/20 05:36: Sodium 140, Potassium 3.5, Chloride 106, Carbon Dioxide 26.0, Anion Gap 8, BUN 15, Creatinine 0.66, Estim Creat Clear Calc 55.07, Est GFR (MDRD) Af Amer 115, Est GFR (MDRD) Non-Af 95, BUN/Creatinine Ratio 22.8 H, Glucose 117 H, Calcium 9.1, Total Bilirubin 0.40, AST 20, ALT 26, Alkaline Phosphatase 77, Total Protein 7.3, Albumin 3.3, Globulin 4.0, Albumin/Globulin Ratio 0.8 L Current Medications Albuterol/Ipratropium (Ipratropium/Albuterol Sulfate 3 Ml Ampul.Neb) 3 ml INHALATION Q4HWA.RT PRN PRN Reason: SHORTNESS OF BREATH Dexamethasone (Dexamethasone 4 Mg Tablet) 6 mg PO DAILY@0800 [facility] Stop: 02/04/20 08:01 Last Admin: 01/27/20 10:13 Dose: 6 mg Documented by: Diphenhydramine HCl (Diphenhydramine 25 Mg Capsule) 50 mg PO QHS PRN PRN PRN Reason: INSOMNIA Last Admin: 01/26/20 22:39 Dose: 50 mg Documented by: Enoxaparin Sodium (Enoxaparin 40 Mg/0.4 Ml Syringe) 40 mg SC BID [facility] Last Admin: 01/27/20 10:14 Dose: 40 mg Documented by: Exemestane (Exemestane 25 Mg Tablet) 25 mg PO DAILY [facility] Last Admin: 01/27/20 10:14 Dose: 25 mg Documented by: Gabapentin (Gabapentin 600 Mg Tablet) 600 mg PO QHS [facility] Last Admin: 01/26/20 22:35 Dose: 600 mg Documented by: [facility]ule) [facility] Last Admin: 01/27/20 10:14 Dose: 300 mg Documented by: Guaifenesin (Guaifenesin 10 Ml Udc (200mg/10ml)) 10 ml PO Q6H PRN PRN PRN Reason: COUGH Last Admin: 01/27/20 10:13 Dose: 10 ml Documented by: Hydrochlorothiazide (Hydrochlorothiazide 25 Mg Tablet) 25 mg PO DAILY@0 [facility] Last Admin: 01/26/20 22:34 Dose: 25 mg Documented by: Losartan Potassium (Losartan Potassium 100 Mg Tablet) 100 mg PO DAILY@2200 [facility] Last Admin: 01/26/20 22:34 Dose: 100 mg Documented by: Melatonin (Melatonin 3 Mg Tablet) 3 mg PO QHS PRN PRN PRN Reason: INSOMNIA Montelukast Sodium (Montelukast 10 Mg Tablet) 10 mg PO DAILY@2200 [facility] Last Admin: 01/26/20 22:35 Dose: 10 mg Documented by: Ondansetron HCl (Ondansetron 4 Mg/2 Ml Vial) 4 mg IV Q8H PRN PRN PRN Reason: NAUSEA/VOMITING Sodium Chloride (0.9% Saline Lock 10 Ml Syringe) 10 - 40 ml IV UD PRN PRN Reason: SALINE FLUSH Last Admin: 01/27/20 10:23 Dose: 10 ml Documented by: Tolterodine Tartrate (Tolterodine Tartrate 2 Mg Cap.Sa) 2 mg PO DAILY [facility] Last Admin: 01/27/20 10:14 Dose: 2 mg Documented by: Medical Necessity - Tobacco Use Smoking Status: Current some day smoker Tobacco Use: Cigarettes Route of nutrition/ use of supplements: [] Nutritional Intake: [] IV Site: [] Smith Catheter: [] - Assessment/Plan Antibiotics: [] Assessment/Plan: [] Active and Suspected Problems (Last Updated 11/24/17 @ 10:51 by Cherelle Walsh) COVID-19 (Acute) Hypoxia (Acute) covid - feeling better, sats are doing well on RA. Recommend discharge home to quarantine for 3 more days and to complete 10 days total of dex. With no PE seen on CT and only mild rise in d-dimer, can go home on 2 weeks of ASA. Will follow
--- NOTE | 2020-01-28 14:27 | CASEMGMT ---
TENNILLE VALENZUELA COVID Discharge F/U Phone Call Discharge date: 01/27/2020 Call date: 01/28/2020 Call time: [phone] Attempted to reach pt without success at this time, message left for pt to call this RN BIANCA back when able. Pt was discharged on room air. [place] TENNILLE VALENZUELA Admission dx: COVID
--- NOTE | 2020-01-29 13:51 | CASEMGMT ---
TENNILLE VALENZUELA DC PHONE CALL DC DATE: 01/27/2020 DC DISPOSITION: Home DC DIAGNOSIS: SARS COVID 2 Intro role of CM to patient via phone. The patient was able to speak briefly, but she was having a constant cough. The patient stated her fever is 102 and she took motrin. TENNILLE VALENZUELA reviewed her symptoms- no worsening shortness of breath, but she is fatigued. TENNILLE VALENZUELA recommended if her fever continues to rise, shortness of breath worsens, or cough is causing shortness of breath, to call her PCP and get recommendations for any further treatment or evaulation. Patient has family who can bring supplies if needed. Reviewed Decadron prescription with her. Grace LIU RN ACM
== END 2020-01-27 15:55 | disposition home or self-care (01) ==
LOC: ED 07:31 → MS2 01-27 11:48
PROVIDERS: Admitting Provider Family Medicine; Emergency Provider Emergency Medicine; PCP Family Medicine; Visit Provider Family Medicine
DX: U07.1 COVID-19 (principal); R09.02 Hypoxemia; A41.89 Other specified sepsis; J12.89 Other viral pneumonia; J45.909 Unspecified asthma, uncomplicated; F17.210 Nicotine dependence, cigarettes, uncomplicated; I10 Essential (primary) hypertension; Z85.3 Personal history of malignant neoplasm of breast; Z79.899 Other long term (current) drug therapy; Z79.51 Long term (current) use of inhaled steroids; Z79.82 Long term (current) use of aspirin; Z98.1 Arthrodesis status
CPT/HCPCS: 36415; 71045; 71275; 80053; 81001; 83605; 83615; 85025; 85379; 85384; 85610; 85730; 86140; 87040; 87086; 87088; 87449; 87633; 93005; 94640; 96360; 96372; 97802; 99218; 99251; 99285; J7030; Q9967; A4216; G0378; G0463

== ENCOUNTER → 2021-03-02 10:26 | Outpatient (CLI) | payer MEDICARE, SELFPAY ==
[2021-03-02 11:13] LABS: Absolute Lymphocyte Count 0.58 X10^3/uL (0.83-4.51); Absolute Neutrophil Count 3.9 X10^3/uL (2.0-7.7); Basophil# 0.05 X10^3/uL; Eosinophil# 0.14 X10^3/uL; Eosinophils% 2.8 % (0-5); Hemoglobin 13.7 g/dL (12.0-15.0); Lymphocyte # 0.58 X10^3/ul (0.83-4.51); Lymphocyte % 11.6 % (19-41); Mean Corp Hgb Conc 34.3 g/dL (32-36); Mean Corpuscular Volume 90.5 fL (81-99); Monocyte# 0.37 X10^3/uL; Monocyte% 7.4 % (0-10); NRBC Flagged by Analyzer 0 % (0-5); Neutrophil # 3.86 X10^3/uL (2.7-7.7); Neutrophil % 76.8 % (47-70); POSITIVE DIFFERENTIAL YES; Platelet Count 246 K/mm3 (150-450); RBC Distribution Width CV 12.6 % (11.6-14.6); RBC Distribution Width SD 41.7 fl (35.1-43.9); Red Blood Count 4.42 M/mm3 (4.2-5.4)
[2021-03-02 11:14] LABS: Differential Indicated SCAN CRITERIA MET
[2021-03-02 11:29] LABS: Hemoglobin A1c 5.3 % (3.8-5.6)
[2021-03-02 11:36] LABS: Vitamin D,25 Hydroxy 38.4 ng/mL
[2021-03-02 11:44] LABS: ALB/GLOB Ratio 1.2 RATIO (0.9-2.4); AST(SGOT) 20 U/L (15-37); Alanine Aminotransfer ALT/SGPT 36 U/L (13-56); Albumin, Serum 4.2 g/dL (3.2-5.0); Alkaline Phosphatase 84 U/L (45-117); Anion Gap 10 (5-15); BUN 13 mg/dL (7-18); BUN/Creat Ratio 19.2 RATIO (10-20); Calcium,Total 9.7 mg/dL (8.5-10.1); Chloride 99 mmol/L (98-107); Cholesterol 216 mg/dL (200); Creatinine, Serum 0.68 mg/dL (0.55-1.02); EST Glomerular Filtration Rate 92 mL/min (>60); Est Glom Filt Rate - Afr Amer 111 mL/min (>60); Globulin 3.5 g/dL (2.2-4.2); Glucose 93 mg/dL (74-106); High Density Lipoprotein 60 mg/dL; Potassium 4.2 mmol/L (3.5-5.1); Protein, Total 7.7 g/dL (6.4-8.2); Sodium Level 137 mmol/L (136-145); Thyroid Stim Hormone (TSH) 1.03 uIU/mL (0.358-3.74); Triglycerides 87 mg/dL; Very Low Density Lipoprotein 17 mg/dL (5-40)
== END ==
PROVIDERS: PCP Internal Medicine; Visit Provider Internal Medicine
DX: I10 Essential (primary) hypertension (principal); E78.5 Hyperlipidemia, unspecified; E55.9 Vitamin D deficiency, unspecified; R73.9 Hyperglycemia, unspecified; E66.9 Obesity, unspecified
CPT/HCPCS: 36415; 80053; 80061; 82306; 83036; 84443; 85025

== ENCOUNTER → 2021-03-11 | Outpatient (CLI) | payer MEDICARE, SELFPAY ==
[2021-03-11 10:32] LABS: D-Dimer Quantitative (DVT/PE) 0.86 FEU/ug/m (0.27-0.49)
== END | disposition home or self-care (01) ==
PROVIDERS: PCP Internal Medicine
DX: R06.00 Dyspnea, unspecified (principal); R06.89 Other abnormalities of breathing
CPT/HCPCS: 85379

== ENCOUNTER → 2021-03-14 11:39 | Outpatient (CLI) | payer MEDICARE, SELFPAY ==
--- NOTE | 2021-03-14 11:40 | EKG12_ITS ---
Test Reason : HTN,HARDING Blood Pressure : / mmHG Vent. Rate : 067 BPM Atrial Rate : 067 BPM P-R Int : 158 ms QRS Dur : 086 ms QT Int : 392 ms P-R-T Axes : 000 061 014 degrees QTc Int : 414 ms Normal sinus rhythm Normal ECG Confirmed by TALHA IVEY, JUAN ([id number]), manuscript editor GABRIEL RIVERA ([id number]) on 03/15/2021 7:26:39 AM Referred By: Carmen Lee Confirmed By:JUAN PALENCIA MD
== END ==
PROVIDERS: PCP Internal Medicine; Referring Provider Internal Medicine; Visit Provider Internal Medicine
DX: I10 Essential (primary) hypertension (principal); E78.5 Hyperlipidemia, unspecified; R06.00 Dyspnea, unspecified; E66.9 Obesity, unspecified
CPT/HCPCS: 93005

== ENCOUNTER 2021-04-07 09:07 | Outpatient (CLI) | payer MEDICARE, SELFPAY ==
[2021-04-07 13:02] LABS: Free T3 3.5 pg/mL (2.18-3.98); T4 Free Direct 1.35 ng/dL (0.76-1.46); Thyroid Stim Hormone (TSH) 1.71 uIU/mL (0.358-3.74)
== END 2021-04-07 23:59 | disposition short-term general hospital (02) ==
LOC: BIMLAB 09:08
PROVIDERS: PCP Internal Medicine; Referring Provider Internal Medicine; Visit Provider Internal Medicine
DX: U07.1 COVID-19 (principal); R23.2 Flushing
CPT/HCPCS: 36415; 84439; 84443; 84481

== ENCOUNTER 2021-04-28 12:29 | Outpatient (CLI) | payer MEDICARE, SELFPAY ==
[2021-04-28 15:13] LABS: Absolute Lymphocyte Count 1.01 X10^3/uL (0.83-4.51); Absolute Neutrophil Count 3.3 X10^3/uL (2.0-7.7); Basophil# 0.04 X10^3/uL; Basophil% 0.8 % (0-1); Eosinophil# 0.22 X10^3/uL; Eosinophils% 4.5 % (0-5); Hematocrit 41.8 % (37-47); Hemoglobin 13.8 g/dL (12.0-15.0); Lymphocyte # 1.01 X10^3/ul (0.83-4.51); Lymphocyte % 20.4 % (19-41); Mean Corpuscular Hgb 30.9 pg (27.0-32.0); Mean Corpuscular Volume 93.7 fL (81-99); Mean Platelet Vol. 9.9 fl (6.2-12.0); Monocyte# 0.37 X10^3/uL; Monocyte% 7.5 % (0-10); NRBC Flagged by Analyzer 0 % (0-5); Neutrophil # 3.28 X10^3/uL (2.7-7.7); Neutrophil % 66.4 % (47-70); Platelet Count 251 K/mm3 (150-450); RBC Distribution Width CV 12.7 % (11.6-14.6); RBC Distribution Width SD 43.1 fl (35.1-43.9); Red Blood Count 4.46 M/mm3 (4.2-5.4); White Blood Count 4.9 K/mm3 (4.4-11.0)
[2021-04-28 15:26] LABS: Erythrocyte Sedimentation Rate 15 mm/hr (0-30)
[2021-04-28 16:28] LABS: AST(SGOT) 20 U/L (15-37); Alanine Aminotransfer ALT/SGPT 37 U/L (13-56); Albumin, Serum 3.8 g/dL (3.2-5.0); Alkaline Phosphatase 100 U/L (45-117); Anion Gap 7 (5-15); BUN 16 mg/dL (7-18); BUN/Creat Ratio 23.9 RATIO (10-20); CRP < 2.90 mg/L (0.0-3.0); Calcium,Total 9.3 mg/dL (8.5-10.1); Chloride 103 mmol/L (98-107); Creatinine, Serum 0.67 mg/dL (0.55-1.02); EST Glomerular Filtration Rate 93 mL/min (>60); Est Glom Filt Rate - Afr Amer 112 mL/min (>60); Globulin 3.8 g/dL (2.2-4.2); Glucose 89 mg/dL (74-106); Potassium 3.7 mmol/L (3.5-5.1); Protein, Total 7.6 g/dL (6.4-8.2); Sodium Level 136 mmol/L (136-145)
[2021-05-04 08:09] LABS: Epinephrine, Pl 21 pg/mL (0-62); Norepinephrine, Pl 635 pg/mL (0-874)
[2021-05-04 13:20] LABS: Dopamine, Pl <30 pg/mL (0-48)
== END 2021-04-28 23:59 | disposition short-term general hospital (02) ==
LOC: BIMLAB 12:30
PROVIDERS: PCP Internal Medicine; Referring Provider Internal Medicine; Visit Provider Internal Medicine
DX: R23.2 Flushing (principal); F41.9 Anxiety disorder, unspecified; Z96.611 Presence of right artificial shoulder joint
CPT/HCPCS: 36415; 80053; 82384; 85025; 85652; 86140

== ENCOUNTER 2021-05-03 06:20 | Outpatient (CLI) | payer MEDICARE, SELFPAY ==
--- NOTE | 2021-05-03 12:23 | STRESSREP ---
Stress Test Report Exercise myocardial perfusion stress test. 70-year-old lady with a history of chest pain. Stress protocol. Resting EKG demonstrates normal sinus rhythm with a rate of 77 bpm. The patient exercised according to regular Gus protocol for total duration of 5 minutes and 16 seconds completing 2 minutes and 16 seconds into stage II of the Gus protocol. The maximum heart rate attained was 1 and 36 bpm which was 89% of max impact at heart rate the maximum workload was 7 metabolic equivalents. At rest there were no ST or T wave changes noted suggest ischemia and at peak exercise nonspecific ST changes were noted less than 1 mm upsloping with did not meet the criteria for ischemia. The test was terminated due to exaggerated BP and dyspnea. The maximum blood pressure was 210/92 mmHg. Myocardial perfusion protocol. 14.7 mCi of technetium 99m sestamibi was injected at rest. The patient exercised according to regular Gus protocol. At peak exercise 44.8 mCi of technetium 99m sestamibi was injected stress images were obtained stress and rest images were reconstructed and compared in the short axis vertical long and horizontal long axis. Gated images were also obtained per Perfusion SPECT analysis: Review of the stress images demonstrate normal uptake of tracer noted in all areas of the myocardium. The resting images similarly demonstrate normal uptake of tracer noted in all areas of the myocardium. No areas of reversibility are noted suggest ischemia and no previous infarct is noted. Gated SPECT analysis: The gated ejection fraction is 65%. Conclusion: Normal exercise myocardial perfusion stress test at a moderate workload. Hypertensive response to exercise
== END 2021-05-03 23:59 | disposition home or self-care (01) ==
LOC: CVS 06:23
PROVIDERS: PCP Internal Medicine; Referring Provider Internal Medicine; Visit Provider Internal Medicine
DX: R06.00 Dyspnea, unspecified (principal)
CPT/HCPCS: 78452; 93017; A9500; A4216

== ENCOUNTER 2021-05-04 11:32 | Outpatient (CLI) | payer MEDICARE, SELFPAY ==
[2021-05-17 14:12] LABS: 5-HIAA, 24UR 6.3 mg/24 hr (0.0-14.9); 5-HIAA, UR 2.1 mg/L (Undefined)
== END 2021-05-04 23:59 | disposition short-term general hospital (02) ==
LOC: LABSPEC 11:33
PROVIDERS: PCP Internal Medicine; Referring Provider Internal Medicine; Visit Provider Internal Medicine
DX: F41.9 Anxiety disorder, unspecified (principal)
CPT/HCPCS: 81050; 83497

== ENCOUNTER 2021-05-12 06:19 | Outpatient (CLI) | payer MEDICARE, SELFPAY ==
--- NOTE | 2021-05-12 06:20 | MRI_ITS ---
STUDY: MRI LEFT SHOULDER REASON FOR EXAM: Left shoulder pain and limited range of motion since 04/05/2021. TECHNIQUE: Standardized fat and water weighted pulse sequences were obtained in all 3 orthogonal planes. COMPARISON: Radiographs 04/08/2021. FINDINGS: There is supraspinatus tendinosis and a full-thickness tear of the supraspinatus tendon (T2 coronal images 7-10) measuring approximately 1.6 x 2.3 cm (length x width). There is infraspinatus tendinosis (T2 coronal image 14) without discrete tendon tear. There is mild subscapularis tendinosis (proton-density axial image 16) without discrete tendon tear. Normal teres minor tendon. Normal supraspinatus muscle. Normal infraspinatus muscle. Normal subscapularis muscle. Normal teres minor muscle. There is a glenohumeral joint effusion. Normal humeral head and visualized proximal humerus. Normal biceps labral complex. There is tendinosis of the intracapsular long biceps tendon (T2 sagittal images 8, 9). Normal labrum. Normal capsulo- ligamentous complex. There is acromioclavicular arthrosis without substantial undersurface osteophytes (T2 sagittal image 8). There is a Type II morphology (curved), with a neutral orientation. There is subacromial-subdeltoid bursal fluid. Normal visualized coracohumeral and coracoacromial ligaments. Normal deltoid muscle. Normal trapezius muscle. MRI/Upper Ext Joint Only(Routine) IMPRESSION: Full-thickness tear and tendinosis of the supraspinatus tendon. Infraspinatus and subscapularis tendinosis. Tendinosis of the long biceps tendon. Acromioclavicular arthrosis. Glenohumeral joint fluid communicating with the subacromial-subdeltoid bursa. Electronically Signed: Cassius Carrasquillo MD at 7:55 EST ,
== END 2021-05-12 23:59 | disposition home or self-care (01) ==
PROVIDERS: PCP Internal Medicine; Referring Provider Physician Assistant; Visit Provider Physician Assistant
DX: S46.002A Unspecified injury of muscle(s) and tendon(s) of the rotator cuff of left shoulder, initial encounter (principal)
CPT/HCPCS: 73221

== ENCOUNTER 2021-05-31 09:35 | Day surgery (SDC) | payer MEDICARE, SELFPAY ==
[2021-05-31] VITALS (7 sets, daily range): BP systolic 132–164; BP diastolic 70–80; PULSE 70–74; RESP 16–18; TEMP 36.3–36.8; O2SAT 91–97; BMI 35.5
--- NOTE | 2021-05-31 10:49 | PCM.HP.BLA ---
History and Physical Date of Admission: 05/31/21 Date of Service: 05/13/21 MR#:[id number]: MYRANDA LLANES #:[id number]:[id number] Provider: YUNIER Robertson/Sex: 70/F [facility] [place]:Signed Intake Intake Visit Reasons: LEFT SHOULDER Chief Complaint: TROUBLE SLEEPING, ANXIETY, JOINT PAIN Allergies adhesive tape Allergy (Verified 04/28/21 11:49) Rash latex Allergy (Verified 04/28/21 11:49) Itching nefazodone [From Serzone] Allergy (Verified 04/28/21 11:49) Rash TIFF WRAPS Allergy (Uncoded 04/28/21 11:49) Itching Medications calcium carb 300 mg-D3 800 unit-mag ox 25 mg-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 0.5 mg-janusz-Zn tablet 1 tab PO DAILY 11/24/17 [History Confirmed 05/13/21] albuterol sulfate 2 puff INHALATION Q4H PRN PRN 01/26/20 [History Confirmed 05/13/21] fluticasone propionate 2 spray NASAL DAILY 01/26/20 [History Confirmed 05/13/21] fluticasone propionate 220 mcg IH BID 01/26/20 [History Confirmed 05/13/21] magnesium 400 mg PO BID 01/26/20 [History Confirmed 05/13/21] montelukast 10 mg PO QHS 01/26/20 [History Confirmed 05/13/21] epinephrine 0.1 mg/0.1 mL injection, auto-injector IM PRN 06/10/20 [History Confirmed 05/13/21] omega-3 fatty acids 500 mg capsule 500 mg PO DAILY 06/10/20 [History Confirmed 05/13/21] glutamine 500 mg capsule 500 mg PO DAILY 07/22/20 [History Confirmed 05/13/21] zinc 50 mg tablet 50 mg PO DAILY 07/22/20 [History Confirmed 05/13/21] Exemastane 25 mg PO DAILY 04/07/21 [History Confirmed 05/13/21] ascorbic acid (vitamin C) 500 mg capsule mg PO 04/07/21 [History Confirmed 05/13/21] mirabegron 50 mg tablet,extended release 24 hr 100 mg PO DAILY tab 04/07/21 [History Confirmed 05/13/21] losartan 100 mg-hydrochlorothiazide 25 mg tablet 1 tab PO QHS #90 tab 04/13/21 [Rx Confirmed 05/13/21] escitalopram oxalate 10 mg tablet 10 mg PO DAILY #30 tab 04/28/21 [Rx Confirmed 05/13/21] gabapentin 300 mg capsule 900 mg PO TID #270 cap 05/02/21 [Rx Confirmed 05/13/21] ibuprofen 200 mg capsule 800 mg PO Q6H PRN cap 05/13/21 [History Confirmed 05/13/21] PFSH Medical History (Updated 05/13/21 @ 11:12 by Gregorio FAYE, PA) Asthma Cervical spondylosis GERD (gastroesophageal reflux disease) History of alcohol abuse History of emotional problems History of kidney stones History of pneumonia Hx of breast cancer hx of port placement Hyperlipemia Hypertension Osteoarthritis Seasonal allergies Stenosis, spinal, lumbar Vitamin D deficiency Surgical History History of adenoidectomy History of ankle surgery History of arthroplasty of right shoulder Hx of bilateral mastectomy Hx of fusion of cervical spine Hx of vein stripping Family History Other Alcoholism Anxiety and depression Arthritis Asthma Heart disease Hyperlipemia Hypertension Melanoma Skin cancer Social History Smoking Status: Former smoker alcohol intake: current alcohol intake frequency: a few times a month Alcohol type: wine substance use type: former substance user and marijuana caffeine: Yes what type of physical activity do you participate in: walking and bicycling HPI LEFT SHOULDER Details: Parts of this documentation were recorded by a scribe, this documentation accurately reflects the service provided and the decisions made by me, YUNIER Haywood 05/13/21 0939. MYRANDA LLANES is a 70 year old F here today for f/u shoulder pain. Patient is back to 800mg of Motrin and has stopped taking Celebrex as she was advised to not take two of these daily. Patient did have an episode of numbness and tingling in her hand after grabbing her treadmill for a period of time. Ortho Exam Left Shoulder Skin/Wound: No ecchymosis, No erythema and No swelling Testing: Yes Hawkin's, Yes TTP Biceps, Yes TTP AC Joint, Yes Drop Arm, No AROM-Forward Elevation 0-180, No AROM-External Rotation at 90 0-60 and Yes empty can SHOULDER: Inspection of the left shoulder shows no acute abnormalities. No swelling or skin changes. Continues to have pain with all range of motion. She does have a little improvement in her abduction going from 30 to 40 degrees up to about 80 to 85 degrees. She also shows good improvement with her forward elevation today getting to about similar 80 to 90 degrees. She does have discomfort however with this motion. She does still have weakness and still an evident drop arm today. Coding Level of Care Code Off vis,est,level 3 Diagnoses Tear of supraspinatus tendon M75.100 Biceps tendonosis of left shoulder M67.814 Assessment and Plan Assessment and Plan (1) Tear of supraspinatus tendon: Status: Acute (2) Biceps tendonosis of left shoulder: Status: Acute Plan - Gregorio FAYE PA: Patient presents the office today for review of the MRI of her left shoulder. Patient states that she has continued to have pain however has seen some improvement with her range of motion. She still is unable to do a lot of daily activities of living due to the pain and decreased motion. We did review her images and impression today showing evidence of a full-thickness anterior supraspinatus tear along with some biceps tendinosis, and some AC joint arthrosis. At this time we did discuss treatment options which include conservatively with physical therapy versus being more aggressive with surgical intervention. 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 She states that she really does not want to try conservative stuff and would like to have this surgically repaired. We did discuss the procedure itself to include arthroscopy with rotator cuff repair, biceps tenotomy, subacromial decompression, and some AC joint debridement to remove spurs. We discussed risks and benefits of which include but are not limited to blood loss, blood clot, infection, neurovascular injury, failure of procedure, loss of limb/loss of life from anesthesia. All her questions were answered in surgical consent was signed in office today. Patient was given a surgical pamphlet with her antimicrobial prescription to be used nightly for 2 days and then the morning of her surgery. Patient be contacted by our office to set up a date of surgery and then by the surgery department for preanesthesia testing. Patient needs to make sure that she stopped all anti-inflammatories 7 days prior to her procedure including natural anti-inflammatories. Patient can notify our office if she has any questions or concerns in the meantime. This note was generated with SmartCrow[employer]ation software. It may contain incorrect words, spelling, and punctuation that were not noted in checking the note before signing. 05/13/21 1115<Electronically signed by Gregorio FAYE>Date Gregorio FAYE Cosigner Signature:Date (if applicable) CC: ~ I have re-examined the patient. There are no clinical changes since date of exam
[2021-05-31] MEDS: Lactated Ringers 1,000 ML 15 ML IV ×2 (12:58→13:45)
[2021-05-31] MEDS: Cefazolin 2 GM in 0.9% Normal Saline 100 ML IV (13:15)
[2021-05-31] MEDS: Lidocaine 1% /Epi 1:100 (50ml) 50 ML VIAL (13:32)
[2021-05-31] MEDS: Epinephrine (1 mg/ml) 1 MG/ML VIAL (13:32)
--- NOTE | 2021-05-31 14:48 | OP.PCM_ITS ---
Report of Operation Date of Procedure: 05/31/21 Description of Surgical Findings:: Preoperative diagnosis: Left rotator cuff tear supraspinatus, biceps tendinopathy Postoperative diagnosis: Anterior supraspinatus rotator cuff tear biceps tendinopathy and partial tearing Procedure: Arthroscopic rotator cuff repair Implants: Arthrex 2 anchor medial lateral repair Anesthesia: General with interscalane block EBL: 25 cc Complications none Indication for procedure: This is a 70-year-old female patient had injury to her left shoulder injuring her rotator cuff MRI did demonstrate this and she did wish to proceed with elective repair risks benefits and alternatives of the procedure were reviewed including risk of bleeding infection nerve artery tissue damage need for further surgery continued pain postoperative stiffness and need for postoperative physical therapy and continued pain and retear. Procedure: Patient was met in the preoperative holding area the operative extremity was identified by both the patient and the physician and was marked. Patient was met by anesthesia and brought back to the operating room on a wheeled cart. Patient was transferred to the operating table in the supine position. Anesthesia was started. Patient was then positioned in the beach chair configuration. Bony prominences were well-padded. The patient was prepped and draped in the usual sterile fashion. A timeout was called to ensure the proper patient procedure and extremity were being contemplated. Anatomic landmarks were palpated and marked with a marking pen. A 0.25% Marcaine with epinephrine was injected into the planned portal sites. An 11 blade scalpel was used to make a stab incision in the posterior lateral portal. Arthroscope was inserted into the glenohumeral space with ease. Inflow and outflow tubes were attached and arthroscopic visualization began. An anterior portal was estab lished with an 18-gauge spinal needle. There was some mild cartilage wear throughout the humeral head and glenoid and some loose cartilage flaps of the rotator cuff footprint which were debrided with a shaver the rotator cuff was evaluated and was found to have a full-thickness tear of the anterior supraspinatus which was retracted posteriorly. The biceps tendon did have partial tearing and tendinopathy the axillary pouch was investigated and was free of loose bodies. The subscapularis was intact. We performed a biceps tenotomy with the jesúswluisf ablator and debrider the undersurface of the torn rotator cuff as well as the footprint, the arthroscope was then repositioned into the subacromial space and a lateral portal was established. A subacromial decompression with an ArthroCare wand and shaver was performed. [The bursal side of the rotator cuff was evaluated . A double loaded corkscrew anchor was placed in the footprint of the supraspinatus 4 limbs were passed through the rot ator cuff separately and secured to the lateral self-tapping anchor. Excellent repair was achieved. The tails of this were used to tie and capture small piece of the supraspinatus that was in a more anterior orientation and it was tied with a knot pusher the wound was thoroughly irrigated through the scope followed by a subacromial injection with 8 cc of 0.5% Marcaine plain. Suture portals were closed with 3-0 nylon arthroscopic stitches followed by Xeroform 4 x 4 ABD and a Ioban dressing. A abduction sling and pillow was placed. Anesthesia was reversed and patient tolerated the procedure well was and was transferred to the PACU. All counts were correct patient will follow-up in the office in 2 weeks . Patient may begin active elbow and wrist range of motion and pendulums of the shoulder but no active shoulder motion, dressing is to be left on for 72 hours before being changed daily after showering
--- NOTE | 2021-05-31 14:53 | DCINST_ITS ---
Discharge Instructions Dressing / Incision Call your doctor if you observe: Shortness of breath and Chest pain Additional Dressing/Incision Instructions:: Leave the dressing on and intact for 48 hours. . Then may remove and shower with warm water and antibacterial soap. But do not submerge in tub for 3 weeks. Ice shoulder 15 min on and 15 mins off next 72 hrs. May remove sling for elbow range of motion and pendulum exercises only then replace sling. Absolutely no active shoulder motion. Do not lift push pull at all with operative extremity . Encourage finger and wrist range of motion. If any concerns call Dr. Deluna's office. Follow Up Care Please Follow Up With: Paul Deluna DO When: 2 weeks Test Results: Test results from this visit will be discussed in further detail at your follow-up appointment, if applicable. Discharge Plan Admission Attending Provider: Paul Deluna Primary Care Provider: Carmen Lee Discharge Orders/Prescriptions Prescriptions: New oxycodone 5 mg tablet 5 - 10 mg PO Q4H PRN (Reason: pain) 5 Days Qty: 40 RF: 0 acetaminophen [Tylenol Extra Strength] 500 mg tablet 1,000 mg PO Q6H PRN (Reason: pain) Qty: 60 RF: 0 No Action Ca carb-D3-mag [id number] [Caltrate + D3 Plus Minerals] 300 mg-800 unit - 25 mg-0.5 mg tablet 1 tab PO DAILY RF: 0 ascorbic acid (vitamin C) 500 mg capsule 500 mg PO DAILY RF: 0 Myrbetriq 50 mg tablet extended release 24 hr 100 mg PO DAILY RF: 0 escitalopram oxalate [Lexapro] 10 mg tablet 10 mg PO DAILY Qty: 30 RF: 1 ibuprofen [Motrin IB] 200 mg capsule 800 mg PO BID RF: 0 albuterol sulfate 1 INHALER inhaler 2 puff INHALATION Q4H PRN PRN (Reason: Sob &/Or Wheezing) RF: 0 fluticasone propionate 1 SPRAY spray,suspension 2 spray NASAL DAILY RF: 0 magnesium 200 MG tablet 200 mg PO QHS RF: 0 montelukast 10 MG tablet 10 mg PO QHS RF: 0 fluticasone propionate 12 GM HFA aerosol inhaler 1 puff IH BID RF: 0 Exemastane 25 mg PO DAILY RF: 0 multivitamin Capsule 1 cap PO DAILY RF: 0 cholecalciferol (vitamin D3) [Vitamin D3] 125 mcg (5,000 unit) Tablet 125 mcg PO BID RF: 0 d-mannose 500 mg Capsule 1,000 mg PO DAILY RF: 0 Quercetin 500 mg PO/SL DAILY RF: 0 losartan-hydrochlorothiazide 100-25 mg tablet 1 tab PO QHS Qty: 90 RF: 3 gabapentin 300 mg capsule 900 mg PO TID Qty: 270 RF: 1 Referrals / Follow Up: Carmen Lee MD [Primary Care Provider] - Disposition Disposition (needs filled in before D/C Order can be placed): Home, Self Care
== END 2021-05-31 23:59 | disposition home or self-care (01) ==
LOC: SDC 09:38 → AC 09:38
PROVIDERS: PCP Internal Medicine; Referring Provider Orthopaedic Surgery; Visit Provider Orthopaedic Surgery
PROC: (CPT 29827; principal; 2021-05-31 11:25)
DX: S46.012A Strain of muscle(s) and tendon(s) of the rotator cuff of left shoulder, initial encounter (principal); X58.XXXA Exposure to other specified factors, initial encounter; M75.22 Bicipital tendinitis, left shoulder; I10 Essential (primary) hypertension; E78.5 Hyperlipidemia, unspecified; F41.9 Anxiety disorder, unspecified; E66.9 Obesity, unspecified; Z68.35 Body mass index [BMI] 35.0-35.9, adult; Z79.51 Long term (current) use of inhaled steroids; Z79.899 Other long term (current) drug therapy; Z86.16 Personal history of COVID-19; Z87.891 Personal history of nicotine dependence
CPT/HCPCS: 29826; 29827; 29828; 64415; 94640; C1713; J2405

== ENCOUNTER → 2022-06-02 | Outpatient (CLI) | payer MEDICARE, SELFPAY ==
--- NOTE | 2022-06-02 12:52 | US_ITS ---
STUDY: RENAL ULTRASOUND - COMPLETE REASON FOR EXAM: Female, 71 years old. UTI TECHNIQUE: Ultrasound evaluation of the kidneys was performed with real-time and static monsivais-scale imaging. COMPARISON: None. FINDINGS: RIGHT KIDNEY: Normal location of the right kidney, which is normal in size. The right kidney measures 11.5 cm x 6.1 cm x 5.2 cm. There is a normal cortex of the right kidney. The renal cortex measures 2.5 cm. There is no right renal mass or cyst. There are no right renal calculi. There is no right hydronephrosis. DISTAL RIGHT URETER: There is non-visualization of the distal right ureter. There is no demonstrated right ureterovesical junction calculus. There is a visualized right ureteral jet. LEFT KIDNEY: Normal location of the left kidney, which is normal in size. The left kidney measures 11.8 cm x 5.8 cm x 5.6 cm. There is a normal cortex of the left kidney. The renal cortex measures 1.5 cm. There is no left renal mass or cyst. There are no left renal calculi. Prominent renal pelvis. No hydronephrosis. DISTAL LEFT URETER: There is non-visualization of the distal left ureter. There is no demonstrated left ureterovesical junction calculus. There is a visualized left ureteral jet. Incidental note is made of mild splenomegaly. The spleen measures 13 cm x 6.3 cm x 6.4 cm. BLADDER: The distended urinary bladder has a volume of 302 ml. There is a normal wall thickness of the distended urinary bladder. There is no demonstrated mass within the urinary bladder. There are no demonstrated bladder calculi. US/Kidney and Bladder IMPRESSION: Normal ultrasound of the kidneys and urinary bladder. Splenomegaly. Electronically Signed: Bruno Tyson MD at 9:05 EST ,
== END | disposition home or self-care (01) ==
LOC: US 12:50
PROVIDERS: PCP Internal Medicine; Visit Provider Urology
DX: N39.0 Urinary tract infection, site not specified (principal)
CPT/HCPCS: 76770

== ENCOUNTER 2024-02-21 10:17 | Day surgery (SDC) | payer MEDICARE, SELFPAY ==
--- NOTE | 2024-02-08 15:48 | PCM.HP.BLA ---
History and Physical Date of Admission: 02/21/24 HPI: The patient is a 73 year old female presenting for pre-operative visit. She is scheduled for Hysteroscopy D&C, possible polyp resection for PMB and endometrial polyp on 02/21/24. Procedure discussed along with risks, benefits and complications. Other alternatives discussed for management. Consent form signed? Yes. PAST MEDICAL HISTORY PAST MEDICAL HISTORY Diagnosis Date ? Allergic rhinitis due to allergen ? Asthma ? Breast cancer (HCC) ? Chronic cough ? Degenerative joint disease lumbar, knees ? Depression post traumatic stress disorder ? Emphysema lung (HCC) Mild by CT ? Fibromyalgia ? Hyperlipidemia ? Hypertension ? Obesity ? LYSSA (obstructive sleep apnea) 04/27/2015 [employer] [facility] ? Osteoarthritis ? Overactive bladder stress incontinence ? Varicose veins PAST SURGICAL HISTORY PAST SURGICAL HISTORY Procedure Laterality Date ? ADENOIDECTOMY HX ? MASTECTOMY HX Bilateral 10/11/2016 ? PAST SURGICAL HISTORY OF late c4-7 fusion/back surgery - bone removed from left fibula for neck fusion ? PAST SURGICAL HISTORY OF 2011 fractured left ankle ? PAST SURGICAL HISTORY OF 2009 right rotator cuff ? PAST SURGICAL HISTORY OF early broke nose/surgery ? PAST SURGICAL HISTORY OF wisdom teeth removal ? PAST SURGICAL HISTORY OF 08/11/2019 neck surgery CURRENT MEDICATIONS Current Outpatient Medications Medication Sig Dispense Refill ? tolterodine ER (DETROL LA) 4 mg 24 hr capsule take 1 capsule by mouth once daily in the morning ? ibuprofen (MOTRIN ORAL) Take by mouth. ? fexofenadine (LASHAWN) 180 mg tablet Take 1 tablet by mouth every afternoon. ? hydrOXYzine HCl (ATARAX) 25 mg tablet take 1 tablet by mouth three times daily as needed for itching ? turmeric (CURCUMIN MISC) Take 500 mg by mouth two times a day. ? potassium citrate 99 mg cap Take 1 capsule by mouth two times a day. ? d-mannose 500 mg capsule Take 1,000 mg by mouth two times a day. ? budesonide (PULMICORT) 0.5 mg/2 mL nebulizer solution Use 2 mL via nebulizer two times a day. 120 mL 5 ? ascorbic acid, vitamin C, 500 mg cap Take by mouth once daily. ? INV VITAMIN D3 5000 UNITS CAPSULE (IRB 19-1548) Take 5,000 Units by mouth once daily. ? estradiol (ESTRACE) 0.01 % (0.1 mg/gram) vaginal cream INSERT 1 GRAM VAGINALLY THREE TIMES A WEEK BEFORE BED ? phenazopyridine (PYRIDIUM) 200 mg tablet Take 200 mg by mouth three times daily as needed. ? lansoprazole (PREVACID) 30 mg capsule Take 1 capsule by mouth twice daily. 30 capsule 2 ? Inhalational Spacing Device (AEROCHAMBER MV) 1 Device as directed. 1 Each 1 ? Multivitamin capsule Take 1 capsule by mouth once daily. ? Lactobacillus acidophilus (PROBIOTIC ORAL) Take by mouth once daily. ? losartan-hydroCHLOROthiazide (HYZAAR) 100-25 mg per tablet Take 1 tablet by mouth once daily. 90 tablet 3 ? CPAP Switching mode of therapy for medical necessity to Autobipap Epap min 8, PS 4-6, IPAP Max 18 cm H2O, Heat Humidity, suitable mask, Lifetime supplies, opt Chinstrap, LYSSA G47.33. 1 Device 0 ? MAGNESIUM ORAL Take 250 mg by mouth once daily. ? CALCIUM/D3/MAG OX/APPRENTICE ELECTRICIAN/SUDHEER/ZN (CALTRATE + D3 PLUS MINERALS ORAL) Take 1 tablet by mouth twice daily. ? miSOPROStol (CYTOTEC) 200 mcg tablet Insert 2 tablets vaginally the night before the procedure. Insert an additional 2 tablets vaginally 4-6 hours prior to the procedure. 4 tablet 0 ? GEMTESA 75 mg tablet Take 75 mg by mouth once daily. (Patient not taking: Reported on 02/08/2024) No current facility-administered medications for this visit. ALLERGIES: Seasonal Allergies, Serzone [Nefazodone Hcl], Tape [Adhesive Tape (Rosins)], and Tramadol PERSONAL HISTORY: SOCIAL HISTORY Social History Tobacco Use ? Smoking status: Former Current packs/day: 0.00 Average packs/day: 1.5 packs/day for 32.0 years (48.0 ttl pk-yrs) Types: Cigarettes Start date: 10/31/1970 Quit date: 04/02/2002 Years since quittin.8 ? Smokeless tobacco: Never ? Tobacco comments: Father smoked pipe in childhood home. Also lived with smokers as adult. No smoking in current home. 04/27/15. Vaping Use ? Vaping status: Never Used Substance Use Topics ? Alcohol use: Not Currently Comment: Socially when out to dinner. ? Drug use: Not Currently Types: Marijuana FAMILY HISTORY: FAMILY HISTORY FAMILY HISTORY Problem Relation Age of Onset ? other (chf) Mother ? other (rheumatoid arthrisit) Mother ? Stroke Father ? other (melanoma) Father ? Alcohol/Drug Sister ? Alcohol/Drug Brother ? Allergies Brother ? other (chf) Maternal Grandmother ? other (Cancer/throat) Maternal Grandfather ? other (brain tumor) Son of GBM at age 39. REVIEW OF SYMPTOMS: GENERAL: denies fevers or chills ENDOCRINOLOGY: has not been on steroids Cardiology : denies palpitations or chest pain Respiratory: denies SOB or cough Hematology: denies history of prolonged bleeding or easy bruising or VTE Allergy: Denies history of personal or family history of allergy to anesthesia PHYSICAL EXAMINATION: VITALS: Blood pressure 128/70, pulse 65, height 172.7 cm (5' 8), weight 94.8 kg (209 lb), SpO2 98%. GENERAL: The patient is well nourished, well hydrated in no acute distress. , The patient is oriented to time, place, and person. NECK: Supple. No lynphadenopathy, normal thyroid, no thyromegaly. LUNGS: Clear to auscultation bilaterally. no wheezes, rhonchi or rales HEART: Regular rate and rhythm, Normal heart sounds, and No murmurs or gallops IMPRESSION: PMB, endometrial polyp PLAN: The risks/benefits/alternatives and personal involved for the planned hysteroscopy D&C with polyp resection were reviewed with the patient. Her questions were answered to her satisfaction and she desires to proceed. Consent was signed. I reviewed with her postop instructions and expectations. I have reviewed and updated past medical and surgical history, medications and allergies Assessment & Plan Assessment/Plan (1) PMB (postmenopausal bleeding): (2) Endometrial polyp:
[2024-02-21] VITALS (10 sets, daily range): BP systolic 114–145; BP diastolic 67–75; PULSE 50–65; RESP 16; TEMP 36.1–37.1; O2SAT 94–97; BMI 31.5
[2024-02-21] MEDS: Ketorolac 15 MG/ML Vial IV (11:05)
[2024-02-21] MEDS: Acetaminophen 500 MG Tablet 1000 MG PO (11:11)
--- NOTE | 2024-02-21 11:42 | PRE.ANES_ITS ---
ASA Classification* ASA Classification ASA Classification: 2 Assessment & Plan Anesthesia* Anesthesia Assessment Anesthesia Assessment: Discussed sedation and/or anesthesia options, risks, benefits, and alternatives with patient/parents/legal guardian/POA. Questions invited. The patient/parents/legal guardian/POA seems to understand and agrees to proceed with anesthesia plan. Reviewed the physical assessment, medical history, allergy history and patient home medications list prior to surgery/procedure/anesthetic and documented any changes. Performed airway and anesthesia risk assessments. Anesthesia Type Anesthesia Type: MAC History Source History Obtained from:: Patient and Chart Anesthesia Focused Assessment* Temperature: 98.7 F Pulse Rate: 57 Blood Pressure: 145/73 Respiratory Rate: 16 Pulse Ox: 97 Oxygen Delivery Method: Room Air Airway Assessment Mouth opens: 2 cm Mallampati Score: IV Teeth Condition: Caps/Crowns (Multiple crowns. They are all tight) Neck Range of motion (ROM): Limited ROM (Decreased extension) Focused Labs Anesthesia Preop lab: CBC WBC 4.9 K/mm3 (4.4-11.0) 04/28/21 12:30 RBC 4.46 M/mm3 (4.2-5.4) 04/28/21 12:30 Hgb 13.8 g/dL (12.0-15.0) 04/28/21 12:30 Hct 41.8 % (37-47) 04/28/21 12:30 Plt Count 251 K/mm3 (150-450) 04/28/21 12:30 CHEMISTRY Potassium 3.7 mmol/L (3.5-5.1) 04/28/21 12:30 Sodium 136 mmol/L (136-145) 04/28/21 12:30 BUN 16 mg/dL (7-18) 04/28/21 12:30 Creatinine 0.67 mg/dL (0.55-1.02) 04/28/21 12:30 Glucose 89 mg/dL (74-106) 04/28/21 12:30 TSH 1.71 uIU/mL (0.358-3.74) 04/07/21 09:08 COAG PT 12.2 SECONDS (11.7-14.9) 01/26/20 04:40 Pre-Assessment Diagnosis/Proposed Procedure Planned Operative Procedure(s): Hysteroscopy,D&C, polyp resection, Symphion Anesthesia History Anesthesia History - home improvement advisor: Anesthesia History - home improvement advisor Hx Hospitalization No 02/18/24 08:44 Any Problems With Anesthesia No 02/18/24 08:44 Cholinesterase deficiency No 02/18/24 08:44 You/Your Family Experience No 02/18/24 08:44 fever (hyperthermia) with Relationship Recent Exposure to Contagious No 02/21/24 10:50 Disease Does patient have nerve No 02/18/24 08:44 stimulator Patient instructed to have device shut off --Does patient have Pacemaker No 02/21/24 10:50 or ICD? When Was Last Pacemaker Check QUESTION #4 FULL TEXT: You/Your Family Experience fever (hyperthermia) with Anesthesia Last Oral Intake Last Oral intake: Last Oral Intake NPO since 08:30 02/21/24 10:50 Meds taken in AM with sips of Yes 02/21/24 10:50 water? Meds patient instructed to take am of surgery Any additional information?: Yes NPO since: 08:00 (Patient had black coffee at 8 AM.) Meds taken in AM with sips of water?: Yes PONV PONV - home improvement advisor: PONV - home improvement advisor Female Yes 02/18/24 08:44 HX of Motion Sickness No 02/18/24 08:44 HX of N/V After Surgery No 02/18/24 08:44 Non-Smoker Yes 02/18/24 08:44 Duration of Surgery greater No 02/18/24 08:44 than 60 minutes Number of Risk Factors 2 02/18/24 08:44 PONV Score Moderate Risk 02/18/24 08:44 Height & Weight Height & Weight: Anesthesia: Height & Weight Height 5 ft 8 in 02/21/24 10:50 Weight: 94 kg 02/21/24 10:50 Body Mass Index (BMI) 31.5 02/21/24 10:50 Respiratory Assessment Respiratory Assessment - home improvement advisor: Respiratory Tract Infection Hx - home improvement advisor Hx Respiratory Tract Infection No 02/18/24 08:44 STOP Sleep Apnea STOP Sleep Apnea - home improvement advisor: STOP Sleep Apnea - home improvement advisor Hx Hypertension Yes: CONTROLLED WITH MED 02/18/24 08:44 Hx Sleep Apnea Yes 02/18/24 08:44 CPAP No 02/18/24 08:44 BIPAP Yes 02/18/24 08:44 Do you snore loudly (louder than talking or can be heard Do you often feel tired/ fatigued/ sleepy during daytime? Has anyone observed you stop breathing during sleep? STOP Results Positive 02/18/24 08:44 QUESTION #5 FULL TEXT : Do you snore loudly (louder than talking or can be heard through closed doors)? Tobacco Use History Tobacco Use History - home improvement advisor: Tobacco Use History - home improvement advisor Tobacco Use Smoking Status Former smoker 02/18/24 08:44 Hx Tobacco Use No 02/18/24 08:44 Years Smoking Packs Smoked per Day Smoking Cessation Date was No - quit smoking greater 02/18/24 08:44 within the last 15 years than 15 years ago Hx Smoking Cessation Date 04/02/02 02/18/24 08:44 Hx Smoking Cessation Counseling Hematologic Medial History Hematologic Hx - home improvement advisor: Hematologic Medical Hx - community health nurse staff Hx of Blood Transfusion No 02/18/24 08:44 Hx of Transfusion in last 3 No 02/18/24 08:44 Months Date of Last Transfusion (if within last 3 months) Ever experience any problems No 02/18/24 08:44 with transfusion(s)? Specify any problems Hx of Preganancy in last 3 No 02/18/24 08:44 Months Nurse Filling Out Transfusion VCHRISTIN 02/18/24 08:44 & Questions: Date: 02/18/24 02/18/24 08:44 Time: 08:45 02/18/24 08:44 Patient unable to answer at this time (ie. confused, unrespo /Reproduction History /Reproductive History - home improvement advisor: /Reproductive Hx- home improvement advisor Hx Now No 02/18/24 08:44 Gestational Age (in weeks): EDC: Hx Hx Para Hx Section SAB No 02/18/24 08:44 Active Medications Active Medications: Current Medications Generic Name Dose Route Start Last Admin Trade Name Freq PRN Reason Stop Dose Admin Acetaminophen 1,000 mg 02/21/24 12:20 02/21/24 11:11 Acetaminophen 500 Mg Tablet PO 02/21/24 12:21 1,000 mg PREOP ONE Administration Ketorolac Tromethamine 15 mg 02/21/24 12:20 02/21/24 11:05 Ketorolac 15 Mg/Ml Vial IV 02/21/24 12:21 15 mg PREOP ONE Administration PFSH Medical History Post-menopausal History of steroid therapy Injury of back History of hiatal hernia COPD (chronic obstructive pulmonary disease) Chronic cough COVID-19 History of tinnitus Wears glasses Wears partial dentures Cancer Anxiety Alcohol use Marijuana use Arthritis Bladder disease Low iron Restless legs Back pain Injury of head and neck Former smoker BiPAP (biphasic positive airway pressure) dependence Shortness of breath on exertion Leg cramps History of echocardiogram History of stress test Hypertension Cervical spondylosis Stenosis, spinal, lumbar GERD (gastroesophageal reflux disease) Vitamin D deficiency History of pneumonia History of kidney stones Hyperlipemia Hypertension History of emotional problems Asthma Seasonal allergies Osteoarthritis History of alcohol abuse Hx of breast cancer hx of port placement Home Medications ?Medication ?Instructions ?Recorded ?Last Taken ?Type calcium 300 mg-D3 20 mcg-magnesium 1 tab PO DAILY 11/24/17 05/30/21 History 25 mg-coppr 0.5 [id number] tablet (Caltrate-D3 Plus Minerals) magnesium 200 mg tablet 1,500 mg PO QHS 01/26/20 05/30/21 History ascorbic acid (vitamin C) 500 mg 500 mg PO DAILY 04/07/21 05/30/21 History capsule losartan 100 1 tab PO QHS hypertension #90 tabs 04/13/21 02/20/24 Rx mg-hydrochlorothiazide 25 mg tablet ibuprofen 200 mg capsule (Motrin 800 mg PO QHS 05/13/21 05/30/21 History IB) cholecalciferol (vitamin D3) 125 125 mcg PO DAILY 05/24/21 05/30/21 History mcg (5,000 unit) tablet (Vitamin D3) d-mannose 500 mg capsule 1,000 mg PO BID 05/24/21 05/30/21 History multivitamin 1 cap PO DAILY 05/24/21 05/30/21 History oxycodone 5 mg tablet 5 - 10 mg (1 - 2 x 5 mg) PO Q4H 05/31/21 Unknown Rx PRN pain 5 days #40 tabs Lactobacillus acidophilus 10 100 mmu cells PO DAILY 02/18/24 Unknown History billion cell capsule (NewFlora) budesonide 0.5 mg/2 mL suspension 1 mg inhalation BID PRN SOB 02/18/24 02/21/24 History for nebulization diphenhydramine HCl 25 mg capsule 25 mg PO QHS 02/18/24 Unknown History (Aler-Cap) fexofenadine 180 mg tablet 180 mg PO DAILY 02/18/24 Unknown History (Sveta Allergy) hydroxyzine HCl 25 mg tablet 25 mg PO QHS 02/18/24 Unknown History lansoprazole 30 mg oral 30 mg PO DAILY 02/18/24 02/21/24 08:00 History suspension,delayed release potassium gluconate 600 mg (99 mg) 600 mg PO DAILY 02/18/24 Unknown History tablet tolterodine 4 mg capsule,extended 4 mg PO DAILY 02/18/24 Unknown History release 24 hr Allergy/AdvReac Type Severity Reaction Status Date / Time tramadol Allergy Severe Other Verified 02/21/24 10:48 adhesive tape Allergy Rash Verified 02/21/24 10:48 Dressing: Non-Medicated (TIFF Allergy Itching Verified 02/21/24 10:48 wrap) nefazodone (From Serzone) Allergy Rash Verified 02/21/24 10:48 Family History Other Alcoholism Anxiety and depression Arthritis Asthma Heart disease Hyperlipemia Hypertension Melanoma Skin cancer Surgical History History of total right hip arthroplasty Hx of shoulder surgery Hx of neck surgery History of adenoidectomy Hx of bilateral mastectomy Hx of vein stripping Hx of fusion of cervical spine History of arthroplasty of right shoulder History of ankle surgery Social History Smoking Status: Former smoker alcohol intake: current alcohol intake frequency: a few times a month Alcohol type: wine substance use type: former substance user and marijuana caffeine: Yes what type of physical activity do you participate in: walking and bicycling Review of Systems (Anesthesia) ROS Narrative System reviewed and no additional complaints, except as documented.
--- NOTE | 2024-02-21 12:20 | EMB_PTH ---
PATIENT: MYRANDA LLANES LOC: [facility] [place] U#:[id number] AGE/SX: 73/F ROOM: RE02/21/[address]: Dr. Lima Garcia MD : 1950 BED: DIS: 02/21/2024 SPEC #: [id number] RECD: 02/21/24 13:24 STATUS: MASTER REMesha #: [id number] TYRELL: 02/21/24 12:[address]: Lima Garcia DEPT: SURGICAL PATHOLOGY RECD BY: Pierre Bonilla ENTERED: 02/21/24 14:34 SP TYPE: ENDOM BX/C OT DR: Gretta Lynne PA-C Tissues: Endometrium, NOS Procedures: Surgery Specimen Level IV HEADER OPERATION: Hysteroscopy, D&C, polyp resection PRE-OP DIAGNOSIS: Postmenopausal bleeding, endometrial polyp TISSUE SUBMITTED: Endometrial curettings and polyp MICROSCOPIC DIAGNOSIS Endometrial curettings and polyp: Consistent with fragments of benign endometrial polyp with inactive endometrium and cystic changes. Fragments of myometrium. See comment. 02/22/2024 COMMENT Clinical correlation and appropriate follow up are necessary. MICROSCOPIC DESCRIPTION Slides are reviewed. GROSS DESCRIPTION Received in fixative is one container labeled with the patient's name and designated Endometrial curettings and polyp. The specimen consists of multiple irregular fragments of chacon-pink soft tissue that in aggregate measure 5.0 x 3.0 x 0.2 cm. The specimen is totally submitted in two cassettes. 02/21/2024 TC:5 CPT:61484
--- NOTE | 2024-02-21 12:29 | DCINST_ITS ---
Discharge Instructions Diet Discharge Diet: No restrictions Activity May shower in (days): 1 May resume sexual activity in: 2 weeks Lifting Restrictions: none Dressing / Incision Call your doctor if your incision/area has: Sudden Increased Bleeding and Foul Smelling Discharge Call your doctor if you observe: Fever of 101 or Higher and Using more than 1 p ad per hour (for 2 hrs in a row) Follow Up Care Please Follow Up With: Lima Garcia MD When: We will contact you next week with your pathology. Call [phone] or send a [employer] message as needed to make an appointment or with any concerns. Test Results: Test results from this visit will be discussed in further detail at your follow- up appointment, if applicable. Discharge Plan Admission Primary Reason for Your Visit: Hysteroscopy D&C Attending Provider: Lima Garcia Primary Care Provider: Gretta Lynne Instructions Print Language: Chinese Discharge Orders/Prescriptions Prescriptions: No Action Ca carb-D3-mag [id number] [Caltrate-D3 Plus Minerals] 300 mg-800 unit -25 mg-0.5 mg tablet 1 tab PO DAILY ascorbic acid (vitamin C) 500 mg capsule 500 mg PO DAILY ibuprofen [Motrin IB] 200 mg capsule 800 mg PO QHS magnesium 200 MG tablet 1,500 mg PO QHS multivitamin Capsule 1 cap PO DAILY cholecalciferol (vitamin D3) [Vitamin D3] 125 mcg (5,000 unit) Tablet 125 mcg PO DAILY d-mannose 500 mg Capsule 1,000 mg PO BID oxycodone 5 mg tablet 5 - 10 mg PO Q4H PRN (Reason: pain) 5 Days Qty: 40 0RF lansoprazole 30 mg susp,delayed release for recon 30 mg PO DAILY NewFlora 10 billion cell capsule 100 mmu cells PO DAILY potassium gluconate 600 mg (99 mg) tablet 600 mg PO DAILY hydroxyzine HCl 25 mg tablet 25 mg PO QHS fexofenadine [Sveta Allergy] 180 mg tablet 180 mg PO DAILY diphenhydramine HCl [Aler-Cap] 25 mg capsule 25 mg PO QHS tolterodine 4 mg capsule,extended release 24hr 4 mg PO DAILY budesonide 0.5 mg/2 mL suspension for nebulization 1 mg inhalation BID PRN (Reason: SOB) losartan-hydrochlorothiazide 100-25 mg tablet 1 tab PO QHS Qty: 90 3RF Referrals / Follow Up: Gretta Lynne, PA-C [Primary Care Provider] - Disposition Disposition (needs filled in before D/C Order can be placed): Home, Self Care
[2024-02-21] MEDS: Lidocaine 1% /Epi 1:100 (20ml) 20 ML Vial (12:47)
--- NOTE | 2024-02-21 13:10 | PCM.OPRPT ---
Problems Associated Problem List Diagnoses (1) Endometrial polyp: (2) PMB (postmenopausal bleeding): Operative Report (Standard) Operative Information Surgery/Procedure Performed: Hysteroscopy D&C with polyp resection Surgeon: Lima Garcia Date of Procedure: 02/21/24 Procedure Start Time: 12:32 Procedure Stop Time: 13:03 Pre-Operative Diagnosis: PMB, endometrial polyp Post-Operative Diagnosis: same Select all DRAINS/GRAFTS/IMPLANTS that apply: None Type of Anesthesia: MAC/Supplemental/Local Special Medications: none Estimated Blood Loss: 25 Fluids Replaced: 0 Specimen collected: Yes Description of specimen(s) removed: endometrial curettings and polyp Description of surgery: The patient was taken to the OR where she was prepped and draped in dorsal lithotomy position. It was very difficult to see the cervix. The vagina was very narrow and I had to obtain narrow retractors. I had to break up since that she had a over the cervix in order to access the cervix. This was then digitally. Then I was able to use a small speculum and visualize the cervix and grasped the anterior lip. A paracervical block was administered with 1% lidocaine with 1-100,000 epinephrine solution. The cervix was dilated serially with Hegar dilators. The 5mm hysteroscope was placed into the uterine cavity and the above findings were noted. Bilateral tubal ostia were identified. The hysteroscope was removed. TheSymphpion resection device was readied and inserted. The endometrial polyp was removed at this entirety without difficulty and then a visual D&C was done to obtain some endometrial curettings.. The instruments were removed from the vagina. The specimen was handed off and sent to pathology. All sponge and needle counts were correct. Vaginal sweep was performed by me. The patient was awakened and taken to the recovery room in stable condition. Calculated hysteroscopic fluid deficit is 150 cc of normal saline Surgical Findings: atrophic vagina w/ some syncytial across the cervix that had to be manually broken up. Normal cervix. Normal endocervical canal. Atrophic endometrium other than posterior wall endometrial polyp. Digital Marketing Apprentice matrix repairer: No Complications Complications: No Admit VTE Documentation VTE Present on Admission: No VTE Mechan Device Prophylaxis: SCD's VTE Pharm Prophylaxis ordered?: No Reason prophylaxis not ordered: Procedure Not Indicated
--- NOTE | 2024-02-21 13:18 | PCM.POST.ANE ---
Anesthesia: Postop Eval I Current Vital Signs Temperature: 97 F Pulse Rate: 62 Blood Pressure: 118/71 Respiratory Rate: 16 Pulse Ox: 96 Oxygen Delivery Method: Room Air Assessment Airway patent: Yes Spontaneous unlabored respirations: Yes Mental status: Awake and Calm nausea: No Vomiting: No Anesthesia Complication: No Fluid Hydration Crystalloid volume administer (ml): 10 Total IV fluid infused: 10 Progress Note Anesthesia document: Postop Eval 1 completed: Yes
--- NOTE | 2024-02-21 17:06 | POSTOPAN2_ITS ---
Anesthesia Postop Eval I Sum Postop Eval Completion status Anesthesia document: Postop Eval 1 completed: Yes Anesthesia Postop Eval I Summary Anesthesia Postop Eval I Summary: Anesthesia Postop Eval I: Assessment Summary Airway patent Yes 02/21/24 13:19 [email or web address][email or web address] Spontaneous unlabored Yes 02/21/24 13:19 [facility][email or web address] respirations Mental status Awake,Calm 02/21/24 13:19 [facility][email or web address] nausea No 02/21/24 13:19 [facility][email or web address] Vomiting No 02/21/24 13:19 [facility][email or web address] Anesthesia Postop Eval I: Fluid Summary Crystalloid volume administer 10 02/21/24 13:19 [facility][email or web address] (ml) Colloids volume administered ( ml) Blood Product volume administered (ml) Total IV fluid infused 10 02/21/24 13:19 [facility][email or web address] Anesthesia Postop Eval I: Summary Notes Anesthesia Complication No 02/21/24 13:19 [facility]YAKELIN Anesthesia Complication Comment: Post-operative progress note Anesthesia: Postop Eval II Evaluation Mental status: Awake and Calm Pain Level: 1 nausea: No Vomiting: No Complications Anesthesia Complication: No
--- NOTE | 2024-02-21 17:06 | PCM.POSTANE2 ---
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.[email or web address] Spontaneous unlabored Yes 02/21/24 13:19 STOCK PLAN ADMINISTRATOR.YAKELIN respirations Mental status Awake,Calm 02/21/24 13:19 STOCK PLAN ADMINISTRATOR.BERENICEOBLis nausea No 02/21/24 13:19 STOCK PLAN ADMINISTRATOR.BERENICEOBLis Vomiting No 02/21/24 13:19 STOCK PLAN ADMINISTRATOR.BERENICEOBLis Anesthesia Postop Eval I: Fluid Summary Crystalloid volume administer 10 02/21/24 13:19 STOCK PLAN ADMINISTRATOR.[email or web address] (ml) Colloids volume administered ( ml) Blood Product volume administered (ml) Total IV fluid infused 10 02/21/24 13:19 STOCK PLAN ADMINISTRATOR.YAKELIN Anesthesia Postop Eval I: Summary Notes Anesthesia Complication No 02/21/24 13:19 STOCK PLAN ADMINISTRATOR.YAKELIN Anesthesia Complication Comment: Post-operative progress note Anesthesia: Postop Eval II Evaluation Mental status: Awake and Calm Pain Level: 1 nausea: No Vomiting: No Complications Anesthesia Complication: No
== END 2024-02-21 14:45 | disposition home or self-care (01) ==
LOC: SDC 10:19 → AC 10:20
PROVIDERS: PCP Family Medicine; Referring Provider Obstetrics & Gynecology; Visit Provider Obstetrics & Gynecology
PROC: 0UB98ZZ Excision of Uterus, Via Natural or Artificial Opening Endoscopic (ICD-10-PCS; CPT 58558; principal; 2024-02-21 12:05)
DX: N84.0 Polyp of corpus uteri (principal); J43.9 Emphysema, unspecified; I10 Essential (primary) hypertension; Z87.891 Personal history of nicotine dependence; E78.5 Hyperlipidemia, unspecified; N95.0 Postmenopausal bleeding; Z79.899 Other long term (current) drug therapy; K21.9 Gastro-esophageal reflux disease without esophagitis
CPT/HCPCS: 58558; 00952; 88305; A4216; J2405